=== PATIENT | female | born 1950 | race Caucasian/White ===

== ENCOUNTER 2019-11-19 12:19 | Emergency (ER) | payer OTHER ==
[2019-11-19] MEDS ORDERED: LIDOCAINE 1% W/EPI 1:100,000 MDV 50 ML VIAL ONE (12:55)
[2019-11-19] MEDS ORDERED: TETANUS & DIPHTHERIA TOX,ADULT 0.5 ML VIAL ONE (14:42)
--- NOTE | 2019-11-19 14:43 | EDPHYS ---
Physician Documentation [facility] Name: Gabi Shepard Age: 69 yrs Sex: Female : 1950 Arrival Date: 11/19/2019 Time: 12:20 Bed 17 Private MD: Magnus Mckinley ED Physician Shaun Menard HPI: 11/18 18:48 This 69 yrs old Female presents to ER via Ambulatory with complaints of Fall kdr Injury, Laceration To Arm. 18:48 Details of fall: The patient fell from an upright position, while standing. kdr Historical: - Allergies: 12:39 No Known Allergies; aa5 - PMHx: 12:39 MS; Hypertension; Diabetes - NIDDM; aa5 - PSHx: 12:39 ; Lithotripsy; Cholecystectomy; aa5 - Immunization history:: Last tetanus immunization: unknown. - Social history:: Smoking status: Patient denies any tobacco usage or history of. ROS: 18:59 Constitutional: Negative for fever, chills, and weight loss. kdr 18:59 MS/extremity: Positive for injury or acute deformity, pain, of the palmar aspect of left forearm. Exam: 18:59 Constitutional: This is a well developed, well nourished patient who is awake, alert, kdr and in no acute distress. Head/Face: Normocephalic, atraumatic. 18:59 Skin: injury, laceration(s), the wound is approximately 12 cm(s), with a depth of 2 cm(s), of the palmar aspect of left forearm. Vital Signs: 12:30 BP 167 / 88; Pulse 83; Resp 16 S; Temp 98.5(O); Pulse Ox 97% on R/A; Weight 84.82 kg aa5 (R); Height 5 ft. 3 in. (160.02 cm) (R); Pain 4/10; 14:29 BP 164 / 77; Pulse 67; Resp 16; Pulse Ox 95% ; jl7 12:30 Body Mass Index 33.13 (84.82 kg, 160.02 cm) aa5 Laceration: 18:44 Wound Repair of 12cm ( 4.7in ) subcutaneous laceration to dorsal aspect of left kdr forearm. Distal neuro/vascular/tendon intact. Anesthesia: Wound infiltrated with 15 mls of 0.25% marcaine, Wound infiltrated with 15 mls of 1% lidocaine w/ Epi. Wound prep: Extensive cleansing by me, Wound irrigation with saline by me, Wound explored extensively, Copious irrigation. Skin closed with 6 4-0 Vicryl using simple sutures and sterile technique. Dressed with Neosporin, 4x4's, non-adherent dressing. Patient tolerated well. MDM: 14:42 Patient medically screened. [facility] 18:44 Data reviewed: vital signs, nurses notes. Counseling: I had a detailed discussion with kdr the patient and/or guardian regarding: the historical points, exam findings, and any diagnostic results supporting the discharge/admit diagnosis, the need for outpatient follow up. 11/18 13:34 Order name: Vicryl, Sutures; Complete Time: 13:35 [facility] 11/18 13:34 Order name: Prolene, Sutures; Complete Time: 13:35 [facility] 11/18 13:34 Order name: Dressing - Wound; Complete Time: 14:38 [facility] 11/18 13:34 Order name: Gloves, Sterile; Complete Time: 13:35 [facility] 11/18 13:34 Order name: Setup Suture Tray; Complete Time: 13:36 [facility] Administered Medications: 13:25 Drug: Bupivacaine (0.5 %) 1 application {Note: administered by Dr. Menard.} Volume: 10 jl7 ml; Route: Infiltration; 13:25 Drug: Lidocaine-Epinephrine -1%: (1:100,000) 1 application {Note: administered by Dr. 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 Exp: jl7 07/17/2021. Lot #: [id number]. } Route: IM; Site: right deltoid; 14:51 Follow up: Response: No adverse reaction Amalia 14:50 Drug: KeFLEX 500 mg Route: PO; radha 14:51 Follow up: Response: No adverse reaction jl7 Disposition: 11/19/19 14:42 Discharged to Home. Impression: Laceration without foreign body of left forearm. - Condition is Stable. - Discharge Instructions: Laceration Care, Adult, [id number], Sutured Wound Care, [id number]. - Prescriptions for Keflex 500 mg Oral Capsule - take 1 capsule by ORAL route every 6 hours for 3 days; 12 capsule. Tramadol 50 mg Oral Tablet - take 1 tablet by ORAL route every 8 hours as needed; 12 tablet. - Medication Reconciliation Form, Thank You Letter, Antibiotic Education, Prescription Opioid Use form. - Follow up: Magnus Mckinley MD; When: 2 - 3 days; Reason: If symptoms return, Further diagnostic work-up, Recheck today's complaints, Continuance of care, Re-evaluation by your physician. - Problem is new. - Symptoms have improved. - Notes: Sutures out in 10-12 days Signatures: Shaun Menard MD MD kdr Monika Plata RN RN aa5 Kiah Nunez RN RN jl7 Corrections: (The following items were deleted from the chart) 14:51 14:42 11/19/2019 14:42 Discharged to Home. Impression: Laceration without foreign body jl7 of left forearm. Condition is Stable. Forms are Medication Reconciliation Form, Thank You Letter, Antibiotic Education, Prescription Opioid Use. Follow up: Magnus Mckinley; When: 2 - 3 days; Reason: If symptoms return, Further diagnostic work-up, Recheck today's complaints, Continuance of care, Re-evaluation by your physician. Problem is new. Symptoms have improved. kdr
--- NOTE | 2019-11-19 14:43 | ER ---
Nurse's Notes [facility] Name: Gabi Shepard Age: 69 yrs Sex: Female : 1950 Arrival Date: 11/19/2019 Time: 12:20 Bed 17 Private MD: Magnus Mckinley Diagnosis: Laceration without foreign body of left forearm Presentation: 11/18 12:29 Chief complaint: Patient states: "There were toys and I slipped and fell and hit my arm aa5 on the fireplace". Laceration noted to left FA, no active bleeding noted. Pt denies head injury, denies LOC. 12:29 Coronavirus screen: Proceed with normal triage. Patient denies a cough. Patient denies aa5 shortness of breath or difficulty breathing. Patient denies measured and/or subjective temperature greater than 100.4F prior to today's visit. Patient denies travel on a cruise ship or to a country the [facility] currently lists as an affected area. Patient denies contact with known and/or suspected case of COVID-19. Ebola Screen: Patient negative for fever greater than or equal to 101.5 degrees Fahrenheit, and additional compatible Ebola Virus Disease symptoms. Initial Sepsis Screen: Does the patient meet any 2 criteria? No. Patient's initial sepsis screen is negative. Does the patient have a suspected source of infection? No. Patient's initial sepsis screen is negative. Risk Assessment: Do you want to hurt yourself or someone else? Patient reports no desire to harm self or others. Onset of symptoms was November 2019. 12:29 Acuity: GABBIE 3 aa5 12:29 Method Of Arrival: Ambulatory aa5 Historical: - Allergies: 12:39 No Known Allergies; aa5 - PMHx: 12:39 MS; Hypertension; Diabetes - NIDDM; aa5 - PSHx: 12:39 ; Lithotripsy; Cholecystectomy; aa5 - Immunization history:: Last tetanus immunization: unknown. - Social history:: Smoking status: Patient denies any tobacco usage or history of. Screenin:40 Abuse screen: Denies threats or abuse. Denies injuries from another. Nutritional jl7 screening: No deficits noted. Tuberculosis screening: No symptoms or risk factors identified. Fall Risk Fall in past 12 months (25 points). Total Gómez Fall Scale indicates Low Risk Score (25-44 pts). Fall prevention measures have been instituted. Side Rails Up X 2 Placed close to Nursing Station Frequent Obs/Assesments occuring Family Present and informed to notify staff if they need to leave bedside As available Patient and Family Educated on Fall Prevention Program and strategies. Assessment: 12:32 Reassessment: Gauze and saline applied to laceration with Kerlix. . aa5 12:40 General: Appears in no apparent distress. uncomfortable, Behavior is calm, cooperative, jl7 appropriate for age. Pain: Complains of pain in dorsal aspect of left forearm Pain currently is 4 out of 10 on a pain scale. Neuro: Level of Consciousness is awake, alert, obeys commands, Oriented to person, place, time, situation. Cardiovascular: Patient's skin is warm and dry. Respiratory: Airway is patent Respiratory effort is even, unlabored, Respiratory pattern is regular, symmetrical. Derm: Skin is pink, warm \\T\\ dry. Injury Description: Laceration sustained to palmar aspect of left forearm is full thickness, jagged, 7.6 to 20 cm long, was sustained 30-60 minutes ago. a small amount of bleeding noted at this time. Vital Signs: 12:30 BP 167 / 88; Pulse 83; Resp 16 S; Temp 98.5(O); Pulse Ox 97% on R/A; Weight 84.82 kg aa5 (R); Height 5 ft. 3 in. (160.02 cm) (R); Pain 4/10; 14:29 BP 164 / 77; Pulse 67; Resp 16; Pulse Ox 95% ; jl7 12:30 Body Mass Index 33.13 (84.82 kg, 160.02 cm) aa5 ED Course: 12:20 Patient arrived in ED. ag5 12:22 Magnus Mckinley MD is Private Physician. ag5 12:26 Shaun Menard MD is Attending Physician. kdr 12:29 Arm band placed on Patient placed in an exam room, on a stretcher. aa5 12:33 Kiah Nunez RN is Primary Nurse. jl7 12:38 Triage completed. aa5 12:40 Patient has correct armband on for positive identification. Bed in low position. Call jl7 light in reach. Side rails up X 1. Pulse ox on. NIBP on. 13:34 Assist provider with laceration repair on palmar aspect of left forearm that was jl7 between 7.6 to 12.5 cm using sutures. Set up tray. Performed by Shaun Menard MD Dressed with 4X4s, Kerlix, Neosporin, Patient tolerated well. 14:41 Magnus Mckinley MD is Referral Physician. kdr 14:51 Patient did not have IV access during this emergency room visit. jl7 Administered Medications: 13:25 Drug: Bupivacaine (0.5 %) 1 application {Note: administered by Dr. Menard.} Volume: 10 jl7 ml; Route: Infiltration; 13:25 Drug: Lidocaine-Epinephrine -1%: (1:100,000) 1 application {Note: administered by Dr. 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 Exp: jl7 07/17/2021. Lot #: [id number]. } Route: IM; Site: right deltoid; 14:51 Follow up: Response: No adverse reaction jl7 14:50 Drug: KeFLEX 500 mg Route: PO; jl7 14:51 Follow up: Response: No adverse reaction jl7 Outcome: 14:42 Discharge ordered by MD. kdr 14:51 Discharged to home ambulatory, with family. jl7 14:51 Condition: stable 14:51 Discharge instructions given to patient, family, Instructed on discharge instructions, follow up and referral plans. medication usage, Demonstrated understanding of instructions, follow-up care, medications, Prescriptions given X 2. 14:51 Patient left the ED. jl7 Signatures: Shaun Menard MD MD kdr Monika Plata, RN RN aa5 Kiah Nunez RN RN jl7 Gregory Ram ag5 Corrections: (The following items were deleted from the chart) 12:41 12:29 Chief complaint: Patient states: "There were toys and I slipped and fell and hit aa5 my arm on the fireplace". Laceration noted to left FA, no active bleeding noted. aa5 13:34 12:40 Assist provider with laceration repair on palmar aspect of left forearm that was jl7 between 7.6 to 12.5 cm using sutures. Set up tray. Performed by Shaun Menard MD Dressed with 4X4s, Kerlix, Neosporin, Patient tolerated well. jl7 13:35 13:34 Bupivacaine (0.5 %) 1 application 10 ml Infiltration 10 ml jl7 jl7
[2019-11-19] MEDS ORDERED: CEPHALEXIN 250 MG CAP ONE (14:55)
[2019-11-19 14:56] VITALS: TEMP 98.5
[2019-11-19 14:58] VITALS: BP 164/77; O2SAT 95
== END 2019-11-19 14:51 | disposition home or self-care (01) ==
LOC: ER 12:19
PROC: 0JQH0ZZ Repair Left Lower Arm Subcutaneous Tissue and Fascia, Open Approach (ICD-10-PCS; principal; 2019-11-19)
DX: S51.812A Laceration without foreign body of left forearm, initial encounter (principal); W19.XXXA Unspecified fall, initial encounter; Y93.9 Activity, unspecified; Y92.9 Unspecified place or not applicable; Z23 Encounter for immunization; I10 Essential (primary) hypertension
CPT/HCPCS: 90471; 90714; 99284

== ENCOUNTER 2022-07-28 20:09 | Emergency (ER) | payer OTHER ==
--- OUTSIDE RECORDS SUMMARY | 2022-07-28 20:14 | XMS REPORT | Continuity of Care Document ---
:1950 Author Organization [facility] t Address [address] [place] [address] Care Team Providers Name Role Phone Kael Guerra Attending Clinician Unavailable Cosmo Hernández Attending Clinician Unavailable Kael Guerra Admitting Clinician Unavailable KNOW, DOES_NOT Admitting Clinician Unavailable ZBIGNIEW GARCIA Admitting Clinician Unavailable Payers Payer Name Policy Type Policy Number Effective Date Expiration Date S ource Problems This patient has no known problems. Allergies, Adverse Reactions, Alerts Allergy Allergy Status Severity Reaction(s) Onset Inactive Treating Comm ents Source Name Type Date Date Clinician TB SERUM DA Active [facility] FROM EXTREMITIES 4[facility]11 [place] 00:00: [address] No Known DA Active U [facility] - [place] s 00:00: [address] Medications This patient has no known medications. Procedures Procedure Date / Time Performed Performing Clinician Shantell connolly [id number] 2021-09-12 00:00:00 [facility] [id number] 2021-09-12 00:00:00 [facility] [id number] 2021-09-12 00:00:00 [facility] [id number] 2021-09-12 00:00:00 [facility] [id number] 2021-09-12 00:00:00 [facility] [id number] 2021-09-12 00:00:00 [facility] [id number] 2021-09-12 00:00:00 [facility] [id number] 2021-09-12 00:00:00 [facility] [id number] 2021-09-12 00:00:00 [facility] [id number] 2021-09-12 00:00:00 [facility] [id number] 2021-09-12 00:00:00 [facility] [id number] 2021-09-12 00:00:00 [facility] [id number] 2021-09-12 00:00:00 [facility] [id number] 2021-09-12 00:00:00 [facility] [id number] 2021-09-12 00:00:00 [facility] [id number] 2021-09-12 00:00:00 [facility] [id number] 2021-09-12 00:00:00 [facility] [id number] 2021-09-12 00:00:00 [facility] [id number] 2021-09-12 00:00:00 [facility] [id number] 2021-09-12 00:00:00 [facility] Encounters Start End Encounter Admission Attending Care Care Encounter Source Date/Time Date/Time Type Type Clinicians Facility Department ID 2021-09-12 2021-09-19 Inpatient CRYSTAL Gonsales INTE [id number] [facility] 11:48:00 10:50:[address] 2021-08-29 2021-08-29 Outpatient CRYSTAL Mcghee SURG [id number] [facility] 09:07:00 09:07:00 [facility] 2021-06-26 2021-06-26 Inpatient YOSEF Hernández, [facility] SURG [id number] [facility] 06:38:00 06:38:00 Cosmo 06 [facility] Results Test Description Test Time Test Comments Results Result Comments Source GLUCOSE BEDSIDE TESTING 2021-09-19 07:49:00 Test Item Value Reference Range Interpretation Comme nts GLUCOSE BEDSIDE TESTING (test code = GLUBED) 109 MG/DL 60-99 H PROTHROMBIN [id number] 05:46:00 Test Item Value Reference Range Interpretation Comments PROTHROMBIN TIME 32.2 SECONDS 9.4-12.7 H PATIENT (test code = PTP) INTERNATIONAL NORMAL 2.8 0.86-1.14 H The INR is to be RATIO (test code = used only for INR) monitoring oral anticoagulantth erap y. INDICATION INR VALUE ---- ---- ---- -------1. Prophylaxis, de ep venous thrombos is, including high risk surgery. 2.0 - 3.0 2. Prophylaxis, deep venous thrombosis, hip surgery, treatm ent for deep venous thrombosis or pulmonary prevention of systemic emboli sm in patients wit h valvular heart disease, atrial fibrillation, tissue heart va lve, or acute myocar dial infarction. 2.0 - 3.0 3. Surgical Garment Fitter al prosthesis hear t valves, recurre nt systemic emboli sm. 3.0 - 4.5 Comments to [place] Counselor: pre op surgeryGLUCOSE BEDSIDE [id number] 20:26:00 Test Item Value Reference Range Interpretation Comments GLUCOSE BEDSIDE TESTING (test code 198 MG/DL 60-99 H = GLUBED) GLUCOSE BEDSIDE [id number] 19:52:00 Test Item Value Reference Range Interpretation Comments GLUCOSE BEDSIDE TESTING (test code 134 MG/DL 60-99 H = GLUBED) GLUCOSE BEDSIDE [id number] 19:52:00 Test Item Value Reference Range Interpretation Comments GLUCOSE BEDSIDE TESTING (test code 130 MG/DL 60-99 H = GLUBED) GLUCOSE BEDSIDE [id number] 19:52:00 Test Item Value Reference Range Interpretation Comments GLUCOSE BEDSIDE TESTING (test code 121 MG/DL 60-99 H = GLUBED) GLUCOSE BEDSIDE [id number] 16:29:00 Test Item Value Reference Range Interpretation Comments GLUCOSE BEDSIDE TESTING (test code = 98 MG/DL 60-99 N GLUBED) GLUCOSE BEDSIDE [id number] 12:05:00 Test Item Value Reference Range Interpretation Comments GLUCOSE BEDSIDE TESTING (test code 135 MG/DL 60-99 H = GLUBED) BASIC METABOLIC [id number] 06:35:00 Test Item Value Reference Range Interpretation Comments SODIUM (test code = 139 MMOL/L 137-145 N NA) POTASSIUM (test code = 4.0 MMOL/L 3.5-5.1 N K) CHLORIDE (test code = 104 MMOL/L 98-107 N CL) CARBON DIOXIDE (test 28 MMOL/L 22-30 N code = CO2) GLUCOSE (test code = 116 MG/DL 74-106 H GLU) BLOOD UREA NITROGEN 19 MG/DL 7-17 H (test code = BUN) GLOMERULAR FILTRATION > 60 Report ing units: RATE (test code = GFR) ml/mi n/1.73 m2 (Modified MDRD Formula)Referen ce Range: > or = 6 0 ml/min/1.73 m2 CREATININE (test code 0.60 MG/DL 0.52-1.04 N = CREAT) CALCIUM (test code = 8.8 MG/DL 8.4-10.2 N CA) PROTHROMBIN [id number] 06:29:00 Test Item Value Reference Range Interpretation Comments PROTHROMBIN TIME 23.6 SECONDS 9.4-12.7 H PATIENT (test code = PTP) INTERNATIONAL NORMAL 2.1 0.86-1.14 H The INR is to be RATIO (test code = used only for INR) monitoring oral anticoagulantth erap y. INDICATION INR VALUE ---- ---- ---- -------1. Prophylaxis, de ep venous thrombos is, including high risk surgery. 2.0 - 3.0 2. Prophylaxis, deep venous thrombosis, hip surgery, treatm ent for deep venous thrombosis or pulmonary prevention of systemic emboli sm in patients wit h valvular heart disease, atrial fibrillation, tissue heart va lve, or acute myocar dial infarction. 2.0 - 3.0 3. Surgical Garment Fitter al prosthesis hear t valves, recurre nt systemic emboli sm. 3.0 - 4.5 Comments to [place] Counselor: pre op surgeryCBC W/AUTO [id number] 06:29:00 Test Item Value Reference Range Interpretation Comments WHITE BLOOD CELL (test code = 10.1 K/MM3 3.8-9.8 H WBC) RED BLOOD CELL (test code = 3.43 M/MM3 3.58-4.97 L RBC) HEMOGLOBIN (test code = HGB) 10.0 G/DL 11.2-14.9 L HEMATOCRIT (test code = HCT) 31.0 % 33.2-43.5 L MEAN CELL VOLUME (test code = 90 fL 80.7-99.1 N MCV) MEAN CELL HGB (test code = MCH) 29.2 pg 27.0-34.1 N MEAN CELL HGB CONCETRATION 32.3 % 32.2-35.7 N (test code = MCHC) RED CELL DISTRIBUTION WIDTH 14.0 % 12.1-15.2 N (test code = RDW) PLATELET COUNT (test code = 187 K/MM3 129-368 N PLT) MEAN PLATELET VOLUME (test code 10.4 fl 7.4-10.4 N = MPV) NEUTROPHIL % (test code = NT%) 54.6 % 43-75 N IMMATURE GRANULOCYTE % (test 1.9 % 0.0-2.0 N code = IG%) LYMPHOCYTE % (test code = LY%) 28.4 % 14-44 N MONOCYTE % (test code = MO%) 8.7 % 4-13 N EOSINOPHIL % (test code = EO%) 5.8 % 0-6 N BASOPHIL % (test code = BA%) 0.6 % 0-2 N NUCLEATED RBC % (test code = 0.0 % 0-1.0 N NRBC%) NEUTROPHIL # (test code = NT#) 5.50 K/mm3 2.0-7.6 N IMMATURE GRANULOCYTE # (test 0.19 x10 3/uL 0-0.03 H code = IG#) LYMPHOCYTE # (test code = LY#) 2.87 K/mm3 1.0-3.8 N MONOCYTE # (test code = MO#) 0.88 K/mm3 0.1-0.8 H EOSINOPHIL # (test code = EO#) 0.59 K/mm3 0.0-0.2 H BASOPHIL # (test code = BA#) 0.06 K/mm3 0.0-0.2 N NUCLEATED RBC # (test code = 0.00 K/mm3 0.0-0.1 N NRBC#) GLUCOSE BEDSIDE [id number] 11:47:00 Test Item Value Reference Range Interpretation Comments GLUCOSE BEDSIDE TESTING (test code 115 MG/DL 60-99 H = GLUBED) PROTHROMBIN [id number] 08:12:00 Test Item Value Reference Range Interpretation Comments PROTHROMBIN TIME 18.2 SECONDS 9.4-12.7 H PATIENT (test code = PTP) INTERNATIONAL NORMAL 1.6 0.86-1.14 H The INR is to be RATIO (test code = used only for INR) monitoring oral anticoagulantth erap y. INDICATION INR VALUE ---- ---- ---- -------1. Prophylaxis, de ep venous thrombos is, including high risk surgery. 2.0 - 3.0 2. Prophylaxis, deep venous thrombosis, hip surgery, treatm ent for deep venous thrombosis or pulmonary prevention of systemic emboli sm in patients wit h valvular heart disease, atrial fibrillation, tissue heart va lve, or acute myocar dial infarction. 2.0 - 3.0 3. Surgical Garment Fitter al prosthesis hear t valves, recurre nt systemic emboli sm. 3.0 - 4.5 UNABLE TO DRAW BLOOD, REASON: CBNNOTIFIED PATIENT CARE STAFF: XENAON 09/17/21 AT 0623 BY Dawit Fletcher Comments to [place] Counselor: pre op surgeryCBC W/AUTO DIFF 2021-09-17 08:08:00 Test Item Value Reference Range Interpretation Comments WHITE BLOOD CELL (test code = 11.7 K/MM3 3.8-9.8 H WBC) RED BLOOD CELL (test code = 3.71 M/MM3 3.58-4.97 N RBC) HEMOGLOBIN (test code = HGB) 10.9 G/DL 11.2-14.9 L HEMATOCRIT (test code = HCT) 34.4 % 33.2-43.5 MEAN CELL VOLUME (test code = 93 fL 80.7-99.1 N MCV) MEAN CELL HGB (test code = MCH) 29.4 pg 27.0-34.1 N MEAN CELL HGB CONCETRATION 31.7 % 32.2-35.7 L (test code = MCHC) RED CELL DISTRIBUTION WIDTH 13.9 % 12.1-15.2 N (test code = RDW) PLATELET COUNT (test code = 190 K/MM3 129-368 PLT) MEAN PLATELET VOLUME (test code 10.4 fl 7.4-10.4 N = MPV) NEUTROPHIL % (test code = NT%) 59.2 % 43-75 N IMMATURE GRANULOCYTE % (test 1.5 % 0.0-2.0 N code = IG%) LYMPHOCYTE % (test code = LY%) 25.0 % 14-44 N MONOCYTE % (test code = MO%) 8.7 % 4-13 N EOSINOPHIL % (test code = EO%) 5.1 % 0-6 N BASOPHIL % (test code = BA%) 0.5 % 0-2 N NUCLEATED RBC % (test code = 0.0 % 0-1.0 N NRBC%) NEUTROPHIL # (test code = NT#) 6.90 K/mm3 2.0-7.6 N IMMATURE GRANULOCYTE # (test 0.18 x10 3/uL 0-0.03 H code = IG#) LYMPHOCYTE # (test code = LY#) 2.92 K/mm3 1.0-3.8 N MONOCYTE # (test code = MO#) 1.01 K/mm3 0.1-0.8 H EOSINOPHIL # (test code = EO#) 0.60 K/mm3 0.0-0.2 H BASOPHIL # (test code = BA#) 0.06 K/mm3 0.0-0.2 N NUCLEATED RBC # (test code = 0.00 K/mm3 0.0-0.1 N NRBC#) BASIC METABOLIC [id number] 08:06:00 Test Item Value Reference Range Interpretation Comments SODIUM (test code = 134 MMOL/L 137-145 L NA) POTASSIUM (test code = 4.1 MMOL/L 3.5-5.1 N K) CHLORIDE (test code = 102 MMOL/L 98-107 N CL) CARBON DIOXIDE (test 23 MMOL/L 22-30 N code = CO2) ANION GAP (test code = 13 MMOL/L 14-24 L GAP) GLUCOSE (test code = 135 MG/DL 74-106 H GLU) BLOOD UREA NITROGEN 19 MG/DL 7-17 H (test code = BUN) GLOMERULAR FILTRATION > 60 Report ing units: RATE (test code = GFR) ml/mi n/1.73 m2 (Modified MDRD Formula)Referen ce Range: > or = 6 0 ml/min/1.73 m2 CREATININE (test code 0.60 MG/DL 0.52-1.04 N = CREAT) CALCIUM (test code = 8.8 MG/DL 8.4-10.2 N CA) [id number] 08:06:00 Test Item Value Reference Range Interpretation Comments MAGNESIUM (test code = MAG) 2.3 MG/DL 1.6-2.3 N GLUCOSE BEDSIDE [id number] 16:43:00 Test Item Value Reference Range Interpretation Comments GLUCOSE BEDSIDE TESTING (test code 158 MG/DL 60-99 H = GLUBED) GLUCOSE BEDSIDE [id number] 16:39:00 Test Item Value Reference Range Interpretation Comments GLUCOSE BEDSIDE TESTING (test code 164 MG/DL 60-99 H = GLUBED) - XR CHEST [id number] 07:31:00 [facility] 1950 Sex: F Patient Name: RIGO BRITO Unit No: [id number] EXAMS: CPT CODE: [id number] XR CHEST 1V 91383 C3 TIME OF STUDY: 09/16/2021 5:00 AM REASON FOR EXAM: S/P CABG COMPARISON: September 16, 2019 FINDINGS: AP view ofthe chest was obtained. Support devices: Stable support devices. Lungs: Normal lung volume. No mass,or consolidation. Multiple vascular congestion. Pleura: No pleural effusion or pneumothorax. Heart and Mediastinum: Normal cardiomediastinal silhouette and calcific atherosclerosis. Bones: Post CABG changes are evident. The median sternotomy wires are in the expected configuration. . IMPRESSION: 1. Expected post-CABG changes with no significant change since prior exam. at 0731 Reported and signed by: Manpreet Martinez MD CC: Jyothi HAWKINS; Cosmo Hernández Technologist: Ozzy Emanuel, RT(R) Transcrpt Date/Tm/Trnsp: 09/16/2021 (07) [email or web address] Orig Print D/T: S: 09/16/2021 (0734) [facility] NAME: RIGO BRITO [id number] PHYS: [place] [address] : 1950 AGE: 71 SEX: F LOC: Z.SI05 A PHONE #: [phone] EXAM DATE: 09/16/2021 STATUS: ADM IN FAX #: [phone] RADIOLOGY NO: PAGE 1 Signed ReportGLUCOSE BEDSIDE [id number] 06:53:00 Test Item Value Reference Range Interpretation Comments GLUCOSE BEDSIDE TESTING (test code 130 MG/DL 60-99 H = GLUBED) BASIC METABOLIC [id number] 06:25:00 Test Item Value Reference Range Interpretation Comments SODIUM (test code = 137 MMOL/L 137-145 N NA) POTASSIUM (test code = 3.6 MMOL/L 3.5-5.1 N K) CHLORIDE (test code = 105 MMOL/L 98-107 N CL) CARBON DIOXIDE (test 28 MMOL/L 22-30 N code = CO2) GLUCOSE (test code = 125 MG/DL 74-106 H GLU) BLOOD UREA NITROGEN 14 MG/DL 7-17 N (test code = BUN) GLOMERULAR FILTRATION > 60 Report ing units: RATE (test code = GFR) ml/mi n/1.73 m2 (Modified MDRD Formula)Referen ce Range: > or = 6 0 ml/min/1.73 m2 CREATININE (test code 0.50 MG/DL 0.52-1.04 L = CREAT) CALCIUM (test code = 8.3 MG/DL 8.4-10.2 L CA) PROTHROMBIN [id number] 06:10:00 Test Item Value Reference Range Interpretation Comments PROTHROMBIN TIME 14.7 SECONDS 9.4-12.7 H PATIENT (test code = PTP) INTERNATIONAL NORMAL 1.3 0.86-1.14 H The INR is to be RATIO (test code = used only for INR) monitoring oral anticoagulantth erap y. INDICATION I NR VALUE ---- ---- ---- -------1. Prophylaxis, de ep venous thrombos is, including high risk surgery. 2.0 - 3.0 2. Prophylaxis, deep venous thrombosis, hip surgery, treatm ent for deep venous thrombosis or pulmonary prevention of systemic emboli sm in patients wit h valvular heart disease, atrial fibrillation, tissue heart va lve, or acute myocar dial infarction. 2.0 - 3.0 3. Surgical Garment Fitter al prosthesis hear t valves, recurre nt systemic emboli sm. 3.0 - 4.5 CBC W/AUTO [id number] 05:58:00 Test Item Value Reference Range Interpretation Comments WHITE BLOOD CELL (test code = 8.6 K/MM3 3.8-9.8 N WBC) RED BLOOD CELL (test code = 3.42 M/MM3 3.58-4.97 L RBC) HEMOGLOBIN (test code = HGB) 9.9 G/DL 11.2-14.9 L HEMATOCRIT (test code = HCT) 31.0 % 33.2-43.5 L MEAN CELL VOLUME (test code = 91 fL 80.7-99.1 N MCV) MEAN CELL HGB (test code = MCH) 28.9 pg 27.0-34.1 N MEAN CELL HGB CONCETRATION 31.9 % 32.2-35.7 L (test code = MCHC) RED CELL DISTRIBUTION WIDTH 13.8 % 12.1-15.2 N (test code = RDW) PLATELET COUNT (test code = 129 K/MM3 129-368 N PLT) MEAN PLATELET VOLUME (test code 10.6 fl 7.4-10.4 H = MPV) NEUTROPHIL % (test code = NT%) 62.8 % 43-75 N IMMATURE GRANULOCYTE % (test 1.1 % 0.0-2.0 N code = IG%) LYMPHOCYTE % (test code = LY%) 20.9 % 14-44 N MONOCYTE % (test code = MO%) 9.1 % 4-13 N EOSINOPHIL % (test code = EO%) 5.5 % 0-6 N BASOPHIL % (test code = BA%) 0.6 % 0-2 N NUCLEATED RBC % (test code = 0.0 % 0-1.0 N NRBC%) NEUTROPHIL # (test code = NT#) 5.39 K/mm3 2.0-7.6 N IMMATURE GRANULOCYTE # (test 0.09 x10 3/uL 0-0.03 H code = IG#) LYMPHOCYTE # (test code = LY#) 1.79 K/mm3 1.0-3.8 N MONOCYTE # (test code = MO#) 0.78 K/mm3 0.1-0.8 N EOSINOPHIL # (test code = EO#) 0.47 K/mm3 0.0-0.2 H BASOPHIL # (test code = BA#) 0.05 K/mm3 0.0-0.2 N NUCLEATED RBC # (test code = 0.00 K/mm3 0.0-0.1 N NRBC#) GLUCOSE BEDSIDE [id number] 20:45:00 Test Item Value Reference Range Interpretation Comments GLUCOSE BEDSIDE TESTING (test code 147 MG/DL 60-99 H = GLUBED) GLUCOSE BEDSIDE [id number] 16:47:00 Test Item Value Reference Range Interpretation Comments GLUCOSE BEDSIDE TESTING (test code 140 MG/DL 60-99 H = GLUBED) GLUCOSE BEDSIDE [id number] 16:31:00 Test Item Value Reference Range Interpretation Comments GLUCOSE BEDSIDE TESTING (test code = 99 MG/DL 60-99 N GLUBED) - XR CHEST [id number] 13:13:00 [facility] : 1950 Sex: F Patient Name: RIGO BRITO Unit No: [id number] EXAMS: CPT CODE: [id number] XR CHEST 1V 13983 EXAMINATION: - XR CHEST 1V. LOCATION: B2. HISTORY: CHEST TUBE REMOVAL. COMPARISON: Radiograph of same day by9416 hours. TECHNIQUE: Single AP view of the chest was obtained. FINDINGS: Right subclavian line is unchanged in position. There has been interval removal of one of the mediastinal drains. The 2nd mediastinal drain is unchanged in position. The heart is normal in size. Median sternotomy wires are present. There has been interval decrease of mild bibasilar atelectasis. There is no pneumothorax. No acute osseous abnormality is identified. IMPRESSION: Mild bibasilar atelectasis, decreased since prior exam. at 1313 Reported and signed by: Theodora Mai MD CC: Cosmo Hernández Technologist: ODELL Guillen, RT(R) Transcrpt Date/Tm/Trnsp:09/15/2021 (1313) [email or web address] Orig Print D/T: S: 09/15/2021 (1316) [facility] NAME: RIGO BRITO [id number] PHYS: [place] [address] : 1950 AGE: 71 SEX: F LOC: Z.SI05 A PHONE #: [phone] EXAM DATE: 09/15/2021 STATUS: ADM IN FAX #: [phone] RADIOLOGY NO: PAGE 1 Signed Report PROTHROMBIN [id number] 07:46:00 Test Item Value Reference Range Interpretation Comments PROTHROMBIN TIME 13.0 SECONDS 9.4-12.7 H PATIENT (test code = PTP) INTERNATIONAL NORMAL 1.2 0.86-1.14 H The INR is to be RATIO (test code = used only for INR) monitoring oral anticoagulantth erap y. INDICATION I NR VALUE ---- ---- ---- -------1. Prophylaxis, de ep venous thrombos is, including high risk surgery. 2.0 - 3.0 2. Prophylaxis, deep venous thrombosis, hip surgery, treatm ent for deep venous thrombosis or pulmonary prevention of systemic emboli sm in patients wit h valvular heart disease, atrial fibrillation, tissue heart va lve, or acute myocar dial infarction. 2.0 - 3.0 3. Surgical Garment Fitter al prosthesis hear t valves, recurre nt systemic emboli sm. 3.0 - 4.5 - XR CHEST [id number] 07:36:00 [facility] : 1950 Sex: F Patient Name: RIGO BRITO Unit No: [id number] EXAMS: CPT CODE: [id number] XR CHEST 1V 72430 EXAM: - XRCHEST 1V Location code:C3 HISTORY: S/P CABG COMPARISON: 09/14/2021 FINDINGS: Single AP view of the chest is provided. Right-sided vascular catheter persists. The cardiac silhouette and pulmonary vasculature are mildly engorged. Interstitial prominence persists. There is no effusion or pneumothorax. Mild vascular congestion is seen. IMPRESSION: 1. No significant interval change. at 0736 Reported and signed by: Dmitriy Lyle MD CC: Jyothi HAWKINS; Cosmo Hernández Technologist: Pao Frias, RT (R) Transcrpt Date/Tm/Trnsp: 09/15/2021 (0736) [email or web address] Orig Print D/T: S: 09/15/2021 (4337) [facility] NAME: RIGO BRITO [id number] [address] PHYS: [place] [address] : 1950 AGE: 71 SEX: F LOC: Z.SI05 A PHONE #: [phone] EXAM DATE: 09/15/2021 STATUS: ADM IN FAX #: [phone] RADIOLOGY NO: PAGE 1 Signed ReportBASIC METABOLIC [id number] 06:38:00 Test Item Value Reference Range Interpretation Comments SODIUM (test code = 137 MMOL/L 137-145 N NA) POTASSIUM (test code = 3.9 MMOL/L 3.5-5.1 N K) CHLORIDE (test code = 105 MMOL/L 98-107 N CL) CARBON DIOXIDE (test 30 MMOL/L 22-30 N code = CO2) ANION GAP (test code = 6 MMOL/L 14-24 L GAP) GLUCOSE (test code = 134 MG/DL 74-106 H GLU) BLOOD UREA NITROGEN 15 MG/DL 7-17 N (test code = BUN) GLOMERULAR FILTRATION > 60 Report ing units: RATE (test code = GFR) ml/mi n/1.73 m2 (Modified MDRD Formula)Referen ce Range: > or = 6 0 ml/min/1.73 m2 CREATININE (test code 0.60 MG/DL 0.52-1.04 N = CREAT) CALCIUM (test code = 8.1 MG/DL 8.4-10.2 L CA) CBC W/AUTO [id number] 06:27:00 Test Item Value Reference Range Interpretation Comments WHITE BLOOD CELL (test code = 10.5 K/MM3 3.8-9.8 H WBC) RED BLOOD CELL (test code = 3.24 M/MM3 3.58-4.97 L RBC) HEMOGLOBIN (test code = HGB) 9.6 G/DL 11.2-14.9 L HEMATOCRIT (test code = HCT) 29.5 % 33.2-43.5 L MEAN CELL VOLUME (test code = 91 fL 80.7-99.1 N MCV) MEAN CELL HGB (test code = MCH) 29.6 pg 27.0-34.1 N MEAN CELL HGB CONCETRATION 32.5 % 32.2-35.7 N (test code = MCHC) RED CELL DISTRIBUTION WIDTH 14.0 % 12.1-15.2 N (test code = RDW) PLATELET COUNT (test code = 111 K/MM3 129-368 L PLT) MEAN PLATELET VOLUME (test code 10.1 fl 7.4-10.4 N = MPV) NEUTROPHIL % (test code = NT%) 68.6 % 43-75 N IMMATURE GRANULOCYTE % (test 0.8 % 0.0-2.0 N code = IG%) LYMPHOCYTE % (test code = LY%) 17.6 % 14-44 N MONOCYTE % (test code = MO%) 9.5 % 4-13 N EOSINOPHIL % (test code = EO%) 3.2 % 0-6 N BASOPHIL % (test code = BA%) 0.3 % 0-2 N NUCLEATED RBC % (test code = 0.0 % 0-1.0 N NRBC%) NEUTROPHIL # (test code = NT#) 7.24 K/mm3 2.0-7.6 N IMMATURE GRANULOCYTE # (test 0.08 x10 3/uL 0-0.03 H code = IG#) LYMPHOCYTE # (test code = LY#) 1.85 K/mm3 1.0-3.8 N MONOCYTE # (test code = MO#) 1.00 K/mm3 0.1-0.8 H EOSINOPHIL # (test code = EO#) 0.34 K/mm3 0.0-0.2 H BASOPHIL # (test code = BA#) 0.03 K/mm3 0.0-0.2 N NUCLEATED RBC # (test code = 0.00 K/mm3 0.0-0.1 N NRBC#) GLUCOSE BEDSIDE [id number] 21:11:00 Test Item Value Reference Range Interpretation Comments GLUCOSE BEDSIDE TESTING (test code 138 MG/DL 60-99 H = GLUBED) GLUCOSE BEDSIDE [id number] 20:23:00 Test Item Value Reference Range Interpretation Comments GLUCOSE BEDSIDE TESTING (test code 176 MG/DL 60-99 H = GLUBED) [id number] 15:01:00 Test Item Value Reference Range Interpretation Comments SURGICAL (test code = SR) RUN DATE: 09/14/21 [facility] - LAB PAGE 1 RUN TIME: 1501 Specimen Inquiry RUN USER: INTERFACE PATIENT: RIGO BRTIO LOC: ELISABET U #: [id number] AGE/SX: 71/F [facility] DR: Kael Guerra MD : 46 BED: A DIS: STATUS: ADM IN TLOC: SPEC #: [id number] RECD: 09/13/21 STATUS: CRIS COHN #: [id number] BARB: 09/12/[address] [facility] [address]: Kael Guerra MD ENTERED: 09/13/21 SP TYPE: SURGICAL OTHR DR: Jovani Bartlett MD, Nioti R MD Pepper, Gregory S MDORDERED: [id number], [id number], ANATOMIC SPEC, SPECIMEN TRACK COPIES TO: [place] [address] [place] [address] [place] [address] [place] [address] [place] [address] [facility] [address] [place] [address] Cosmo Hernán[place] [id number] [facility] [address] [place], [place] [address] PROCEDURES: 18061 (09/13/21) 20995 (09/14/21-1499) SPECIMEN TRACK (09/13/21) TISSUES: A. AORTIC VALVE - AORTIC VALVE LEAFLETS FINAL DIAGNOSIS AORTA, VALVE REPLACEMENT: - Valve leaflets with degenerative changes and calcifications. GROSS DESCRIPTION Aortic valve leaflets. It consists of several fragments of aortic valve measuringaggregate of 3 x 3.2 x 0.6 cm. They are sectioned to reveal a heavily calcified cutsurface. Sections are submitted for decalcification as A. Technical component performed at [place] CONTINUED ON NEXT PAGE RUN DATE: 09/14/21 [facility] PAGE 2 RUN TIME: 1501 Specimen Inquiry RUN USER: INTERFACE SPEC #: [id number] PATIENT: RIGO BRITO #[id number] (Continued) GROSS DESCRIPTION (Continued) [address], [place] [address] MICROSCOPIC DESCRIPTION The diagnosis is based upon microscopic examination. Signed SIGNATURE ON FILE ZiaEffie 09/14/21 1501 END OF REPORT GLUCOSE BEDSIDE [id number] 10:54:00 Test Item Value Reference Range Interpretation Comments GLUCOSE BEDSIDE TESTING (test code 149 MG/DL 60-99 H = GLUBED) GLUCOSE BEDSIDE [id number] 10:54:00 Test Item Value Reference Range Interpretation Comments GLUCOSE BEDSIDE TESTING (test code 150 MG/DL 60-99 H = GLUBED) - [facility] [id number] 07:31:00 [facility] : 1950 Sex: F Patient Name: RIGO BRITO Unit No: [id number] EXAMS: CPT CODE: [id number] XR CHEST 1V 24650 EXAMINATION: - XR CHEST 1V HISTORY: Postop COMPARISON: Chest x-ray performed the previous day LOCATION CODE: C3 FINDINGS: Single frontal view of the chest is submitted for evaluation. [place] catheter has beenremoved since the prior study. Right-sided central venous catheter remains present and is unchanged as are linear opacities in both lower lungs. 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 No new abnormalities are identified. IMPRESSION: Interval removal of [place]Melanie catheter, without other significant change at 0731 Repo rted and signed by: Quyen Nguyen MD CC: Jyothi HAWKINS; Cosmo Hernández Technologist: Kevin Ordaz (RT) Transcrpt Date/Tm/Trnsp: 09/14/2021 (0731) [email or web address] Orig Print D/T: S: 09/14/2021 (0734) [facility] NAME: RIGO BRITO [id number] PHYS: [place] [address] : 1950 AGE: 71 SEX: F LOC: Z.SI05 A PHONE #: [phone] EXAM DATE: 09/14/2021 STATUS: ADM IN FAX #: [phone] RADIOLOGY NO: PAGE 1 Signed ReportBASIC METABOLIC [id number] 07:02:00 Test Item Value Reference Range Interpretation Comments SODIUM (test code = 136 MMOL/L 137-145 L NA) POTASSIUM (test code = 3.8 MMOL/L 3.5-5.1 N K) CHLORIDE (test code = 104 MMOL/L 98-107 N CL) CARBON DIOXIDE (test 28 MMOL/L 22-30 N code = CO2) ANION GAP (test code = 8 MMOL/L 14-24 L GAP) GLUCOSE (test code = 139 MG/DL 74-106 H GLU) BLOOD UREA NITROGEN 24 MG/DL 7-17 H (test code = BUN) GLOMERULAR FILTRATION > 60 Report ing units: RATE (test code = GFR) ml/mi n/1.73 m2 (Modified MDRD Formula)Referen ce Range: > or = 6 0 ml/min/1.73 m2 CREATININE (test code 0.70 MG/DL 0.52-1.04 N = CREAT) CALCIUM (test code = 8.2 MG/DL 8.4-10.2 L CA) [id number] 07:02:00 Test Item Value Reference Range Interpretation Comments MAGNESIUM (test code = MAG) 2.5 MG/DL 1.6-2.3 H PROTHROMBIN [id number] 06:39:00 Test Item Value Reference Range Interpretation Comments PROTHROMBIN TIME 13.6 SECONDS 9.4-12.7 H PATIENT (test code = PTP) INTERNATIONAL NORMAL 1.2 0.86-1.14 H The INR is to be RATIO (test code = used only for INR) monitoring oral anticoagulantth erap y. INDICATION INR VALUE ---- ---- ---- -------1. Prophylaxis, de ep venous thrombos is, including high risk surgery. 2.0 - 3.0 2. Prophylaxis, deep venous thrombosis, hip surgery, treatm ent for deep venous thrombosis or pulmonary prevention of systemic emboli sm in patients wit h valvular heart disease, atrial fibrillation, tissue heart va lve, or acute myocar dial infarction. 2.0 - 3.0 3. Surgical Garment Fitter al prosthesis hear t valves, recurre nt systemic emboli sm. 3.0 - 4.5 CBC W/AUTO [id number] 06:30:00 Test Item Value Reference Range Interpretation Comments WHITE BLOOD CELL (test code = 13.8 K/MM3 3.8-9.8 H WBC) RED BLOOD CELL (test code = 3.28 M/MM3 3.58-4.97 L RBC) HEMOGLOBIN (test code = HGB) 9.7 G/DL 11.2-14.9 L HEMATOCRIT (test code = HCT) 30.8 % 33.2-43.5 L MEAN CELL VOLUME (test code = 94 fL 80.7-99.1 N MCV) MEAN CELL HGB (test code = MCH) 29.6 pg 27.0-34.1 N MEAN CELL HGB CONCETRATION 31.5 % 32.2-35.7 L (test code = MCHC) RED CELL DISTRIBUTION WIDTH 14.5 % 12.1-15.2 N (test code = RDW) PLATELET COUNT (test code = 119 K/MM3 129-368 L PLT) MEAN PLATELET VOLUME (test code 10.3 fl 7.4-10.4 N = MPV) NEUTROPHIL % (test code = NT%) 70.5 % 43-75 N IMMATURE GRANULOCYTE % (test 0.5 % 0.0-2.0 N code = IG%) LYMPHOCYTE % (test code = LY%) 17.6 % 14-44 N MONOCYTE % (test code = MO%) 8.9 % 4-13 N EOSINOPHIL % (test code = EO%) 2.2 % 0-6 N BASOPHIL % (test code = BA%) 0.3 % 0-2 N NUCLEATED RBC % (test code = 0.0 % 0-1.0 N NRBC%) NEUTROPHIL # (test code = NT#) 9.73 K/mm3 2.0-7.6 H IMMATURE GRANULOCYTE # (test 0.07 x10 3/uL 0-0.03 H code = IG#) LYMPHOCYTE # (test code = LY#) 2.42 K/mm3 1.0-3.8 N MONOCYTE # (test code = MO#) 1.22 K/mm3 0.1-0.8 H EOSINOPHIL # (test code = EO#) 0.30 K/mm3 0.0-0.2 H BASOPHIL # (test code = BA#) 0.04 K/mm3 0.0-0.2 N NUCLEATED RBC # (test code = 0.00 K/mm3 0.0-0.1 N NRBC#) GLUCOSE BEDSIDE [id number] 18:17:00 Test Item Value Reference Range Interpretation Comments GLUCOSE BEDSIDE TESTING (test code 143 MG/DL 60-99 H = GLUBED) GLUCOSE BEDSIDE [id number] 18:17:00 Test Item Value Reference Range Interpretation Comments GLUCOSE BEDSIDE TESTING (test code 166 MG/DL 60-99 H = GLUBED) GLUCOSE BEDSIDE [id number] 18:17:00 Test Item Value Reference Range Interpretation Comments GLUCOSE BEDSIDE TESTING (test code 131 MG/DL 60-99 H = GLUBED) GLUCOSE BEDSIDE [id number] 10:10:00 Test Item Value Reference Range Interpretation Comments GLUCOSE BEDSIDE TESTING (test code 135 MG/DL 60-99 H = GLUBED) GLUCOSE BEDSIDE [id number] 06:55:00 Test Item Value Reference Range Interpretation Comments GLUCOSE BEDSIDE TESTING (test code 164 MG/DL 60-99 H = GLUBED) GLUCOSE BEDSIDE [id number] 06:54:00 Test Item Value Reference Range Interpretation Comments GLUCOSE BEDSIDE TESTING (test code 168 MG/DL 60-99 H = GLUBED) - XR CHEST [id number] 06:39:00 [facility] 1950 Sex: F Patient Name: RIGO BRITO Unit No: [id number] EXAMS: CPT CODE: [id number] XR CHEST 1V [id number] EXAM: - XRCHEST 1V Location code:C3 HISTORY: S/P CABG COMPARISON: 09/12/2021 FINDINGS: Single AP view of the chest is provided. Endotracheal tube has been unchanged. Other support lines and tubes are similar. Interstitial prominence persists. There is no effusion or pneumothorax. Mild vascular congestion is seen. IMPRESSION: 1. Endotracheal tube has been removed otherwise no significant interval change. at 0639 Reported and signed by: Dmitriy Lyle MD CC: Jyothi HAWKINS; Cosmo Hernández Technologist: Kevin Ordaz (RT) Tra nscrpt Date/Tm/Trnsp: 09/13/2021 (0639) [email or web address] Orig Print D/T: S: 09/13/2021 (0643) [facility] NAME: RIGO BRITO [id number] PHYS: [place] [address] : 1950 AGE: 71 SEX: F LOC: Z.SI05 A PHONE #: [phone] EXAM DATE: 09/13/2021 STATUS: ADM IN FAX #: [phone] RADIOLOGY NO: PAGE 1 Signed ReportBASIC METABOLIC [id number] 04:01:00 Test Item Value Reference Range Interpretation Comments SODIUM (test code = 142 MMOL/L 137-145 N NA) POTASSIUM (test code = 3.8 MMOL/L 3.5-5.1 N K) CHLORIDE (test code = 110 MMOL/L 98-107 H CL) CARBON DIOXIDE (test 28 MMOL/L 22-30 N code = CO2) ANION GAP (test code = 8 MMOL/L 14-24 L GAP) GLUCOSE (test code = 157 MG/DL 74-106 H GLU) BLOOD UREA NITROGEN 19 MG/DL 7-17 H (test code = BUN) GLOMERULAR FILTRATION > 60 Report ing units: RATE (test code = GFR) ml/mi n/1.73 m2 (Modified MDRD Formula)Referen ce Range: > or = 6 0 ml/min/1.73 m2 CREATININE (test code 0.60 MG/DL 0.52-1.04 N = CREAT) CALCIUM (test code = 7.9 MG/DL 8.4-10.2 L CA) [id number] 04:01:00 Test Item Value Reference Range Interpretation Comments MAGNESIUM (test code = MAG) 2.4 MG/DL 1.6-2.3 H CBC W/AUTO [id number] 03:48:00 Test Item Value Reference Range Interpretation Comments WHITE BLOOD CELL (test code = 16.5 K/MM3 3.8-9.8 H WBC) RED BLOOD CELL (test code = 3.80 M/MM3 3.58-4.97 N RBC) HEMOGLOBIN (test code = HGB) 11.2 G/DL 11.2-14.9 N HEMATOCRIT (test code = HCT) 34.3 % 33.2-43.5 N MEAN CELL VOLUME (test code = 90 fL 80.7-99.1 N MCV) MEAN CELL HGB (test code = MCH) 29.5 pg 27.0-34.1 N MEAN CELL HGB CONCETRATION 32.7 % 32.2-35.7 N (test code = MCHC) RED CELL DISTRIBUTION WIDTH 14.2 % 12.1-15.2 N (test code = RDW) PLATELET COUNT (test code = 172 K/MM3 129-368 N PLT) MEAN PLATELET VOLUME (test code 10.1 fl 7.4-10.4 N = MPV) NEUTROPHIL % (test code = NT%) 79.7 % 43-75 H IMMATURE GRANULOCYTE % (test 0.5 % 0.0-2.0 N code = IG%) LYMPHOCYTE % (test code = LY%) 9.5 % 14-44 L MONOCYTE % (test code = MO%) 9.9 % 4-13 N EOSINOPHIL % (test code = EO%) 0.1 % 0-6 N BASOPHIL % (test code = BA%) 0.3 % 0-2 N NUCLEATED RBC % (test code = 0.0 % 0-1.0 N NRBC%) NEUTROPHIL # (test code = NT#) 13.13 K/mm3 2.0-7.6 H IMMATURE GRANULOCYTE # (test 0.08 x10 3/uL 0-0.03 H code = IG#) LYMPHOCYTE # (test code = LY#) 1.56 K/mm3 1.0-3.8 N MONOCYTE # (test code = MO#) 1.63 K/mm3 0.1-0.8 H EOSINOPHIL # (test code = EO#) 0.01 K/mm3 0.0-0.2 N BASOPHIL # (test code = BA#) 0.05 K/mm3 0.0-0.2 N NUCLEATED RBC # (test code = 0.00 K/mm3 0.0-0.1 N NRBC#) GLUCOSE BEDSIDE [id number] 03:40:00 Test Item Value Reference Range Interpretation Comments GLUCOSE BEDSIDE TESTING (test code 154 MG/DL 60-99 H = GLUBED) GLUCOSE BEDSIDE [id number] 03:05:00 Test Item Value Reference Range Interpretation Comments GLUCOSE BEDSIDE TESTING (test code 160 MG/DL 60-99 H = GLUBED) GLUCOSE BEDSIDE [id number] 01:29:00 Test Item Value Reference Range Interpretation Comments GLUCOSE BEDSIDE TESTING (test code 164 MG/DL 60-99 H = GLUBED) GLUCOSE BEDSIDE [id number] 01:23:00 Test Item Value Reference Range Interpretation Comments GLUCOSE BEDSIDE TESTING (test code 145 MG/DL 60-99 H = GLUBED) GLUCOSE BEDSIDE [id number] 01:23:00 Test Item Value Reference Range Interpretation Comments GLUCOSE BEDSIDE TESTING (test code 176 MG/DL 60-99 H = GLUBED) GLUCOSE BEDSIDE [id number] 01:23:00 Test Item Value Reference Range Interpretation Comments GLUCOSE BEDSIDE TESTING (test code 189 MG/DL 60-99 H = GLUBED) GLUCOSE BEDSIDE [id number] 01:23:00 Test Item Value Reference Range Interpretation Comments GLUCOSE BEDSIDE TESTING (test code 204 MG/DL 60-99 H = GLUBED) GLUCOSE BEDSIDE [id number] 01:23:00 Test Item Value Reference Range Interpretation Comments GLUCOSE BEDSIDE TESTING (test code 161 MG/DL 60-99 H = GLUBED) GLUCOSE BEDSIDE [id number] 01:23:00 Test Item Value Reference Range Interpretation Comments GLUCOSE BEDSIDE TESTING (test code 194 MG/DL 60-99 H = GLUBED) GLUCOSE BEDSIDE [id number] 01:23:00 Test Item Value Reference Range Interpretation Comments GLUCOSE BEDSIDE TESTING (test code 157 MG/DL 60-99 H = GLUBED) GLUCOSE BEDSIDE [id number] 01:23:00 Test Item Value Reference Range Interpretation Comments GLUCOSE BEDSIDE TESTING (test code 193 MG/DL 60-99 H = GLUBED) BASIC METABOLIC [id number] 18:33:00 Test Item Value Reference Range Interpretation Comments SODIUM (test code = 142 MMOL/L 137-145 N NA) POTASSIUM (test code = 4.1 MMOL/L 3.5-5.1 N K) CHLORIDE (test code = 110 MMOL/L 98-107 H CL) CARBON DIOXIDE (test 25 MMOL/L 22-30 N code = CO2) ANION GAP (test code = 11 MMOL/L 14-24 L GAP) GLUCOSE (test code = 162 MG/DL 74-106 H GLU) BLOOD UREA NITROGEN 19 MG/DL 7-17 H (test code = BUN) GLOMERULAR FILTRATION > 60 Report ing units: RATE (test code = GFR) ml/mi n/1.73 m2 (Modified MDRD Formula)Referen ce Range: > or = 6 0 ml/min/1.73 m2 CREATININE (test code 0.60 MG/DL 0.52-1.04 N = CREAT) CALCIUM (test code = 8.6 MG/DL 8.4-10.2 N CA) UNABLE TO DRAW BLOOD, REASON: CBNBNOTIFIED PATIENT CARE STAFF: [facility] 09/12/21 AT 1413 BY Dior Awad [id number] 18:33:00 Test Item Value Reference Range Interpretation Comments MAGNESIUM (test code = MAG) 3.0 MG/DL 1.6-2.3 H UNABLE TO DRAW BLOOD, REASON: CBNBNOTIFIED PATIENT CARE STAFF: [facility] 09/12/21 AT 1413 BY Dior Awad AnPROTHROMBIN [id number] 18:22:00 Test Item Value Reference Range Interpretation Comments PROTHROMBIN TIME 12.1 SECONDS 9.4-12.7 PATIENT (test code = PTP) INTERNATIONAL NORMAL 1.1 0.86-1.14 N The INR is to be RATIO (test code = used only for INR) monitoring oral anticoagulantth erap y. INDICATION I NR VALUE ---- ---- ---- -------1. Prophylaxis, de ep venous thrombos is, including high risk surgery. 2.0 - 3.0 2. Prophylaxis, deep venous thrombosis, hip surgery, treatm ent for deep venous thrombosis or pulmonary prevention of systemic emboli sm in patients wit h valvular heart disease, atrial fibrillation, tissue heart va lve, or acute myocar dial infarction. 2.0 - 3.0 3. Surgical Garment Fitter al prosthesis hear t valves, recurre nt systemic emboli sm. 3.0 - 4.5 PTT [id number] 18:22:00 Test Item Value Reference Range Interpretation Comments PTT ACTIVATED (test code = APTT) 30.3 SECONDS 26.2-35.4 CBC W/AUTO [id number] 18:18:00 Test Item Value Reference Range Interpretation Comments WHITE BLOOD CELL (test code = 18.7 K/MM3 3.8-9.8 H WBC) RED BLOOD CELL (test code = 4.27 M/MM3 3.58-4.97 RBC) HEMOGLOBIN (test code = HGB) 12.5 G/DL 11.2-14.9 HEMATOCRIT (test code = HCT) 37.9 % 33.2-43.5 MEAN CELL VOLUME (test code = 89 fL 80.7-99.1 N MCV) MEAN CELL HGB (test code = MCH) 29.3 pg 27.0-34.1 N MEAN CELL HGB CONCETRATION 33.0 % 32.2-35.7 N (test code = MCHC) RED CELL DISTRIBUTION WIDTH 13.9 % 12.1-15.2 N (test code = RDW) PLATELET COUNT (test code = 195 K/MM3 129-368 N PLT) MEAN PLATELET VOLUME (test code 10.0 fl 7.4-10.4 N = MPV) NEUTROPHIL % (test code = NT%) 88.4 % 43-75 H IMMATURE GRANULOCYTE % (test 1.0 % 0.0-2.0 N code = IG%) LYMPHOCYTE % (test code = LY%) 4.9 % 14-44 L MONOCYTE % (test code = MO%) 5.3 % 4-13 N EOSINOPHIL % (test code = EO%) 0.1 % 0-6 N BASOPHIL % (test code = BA%) 0.3 % 0-2 N NUCLEATED RBC % (test code = 0.0 % 0-1.0 N NRBC%) NEUTROPHIL # (test code = NT#) 16.58 K/mm3 2.0-7.6 H IMMATURE GRANULOCYTE # (test 0.18 x10 3/uL 0-0.03 H code = IG#) LYMPHOCYTE # (test code = LY#) 0.91 K/mm3 1.0-3.8 L MONOCYTE # (test code = MO#) 0.99 K/mm3 0.1-0.8 H EOSINOPHIL # (test code = EO#) 0.02 K/mm3 0.0-0.2 N BASOPHIL # (test code = BA#) 0.06 K/mm3 0.0-0.2 N NUCLEATED RBC # (test code = 0.00 K/mm3 0.0-0.1 N NRBC#) UNABLE TO DRAW BLOOD, REASON: CBNOTIFIED PATIENT CARE STAFF: [facility] 09/12/21 AT 1413 BY Dior Awad An- XR CHEST [id number] 14:23:00 [facility] 1950 Sex: F Patient Name: RIGO BRITO Unit No: [id number] EXAMS: CPT CODE: [id number] XR CHEST 1V 61071 EXAMINATION: - XR CHEST 1V HISTORY: Aortic valve replacement COMPARISON: Chest x-ray performed the previous day LOCATION CODE: C3 FINDINGS: Single frontal view of the chest is submitted for evaluation. Patient has undergone interval median sternotomy and aortic valve replacement. [place]-Melanie catheter from a right internal jugular vein approach is noted with the tip projecting over the area of the pulmonary artery outflow tract. A second right-sided internal jugular central venous catheter is also present with its tip projecting over the area of the distal superior vena cava. Endotracheal tube is present with tip approximately 1.8 cm above the mirza. Nasogastric tube is present. Tip is in the proximal to midstomach with the side-port in the proximal stomach at or just distal to the gastroesophageal junction A presumed mediastinal drain and a right-sided chest tube are noted. Mild linear changes are seen in both lungs presumably atelectatic in nature. IMPRESSION: Postoperative changes as above at 1423 Reported and signed by: Quyen Nguyen MD CC:Jyothi HAWKINS; Cosmo Hernández Technologist: Pao Frias, RT (R) Transcrpt Date/Tm/Trnsp: 09/12/2021 (5313) [id number] Orig Print D/T: S: 09/12/2021 (3430) [facility] NAME: RIGO BRITO [id number] PHYS: [place] [address] : 1950 AGE: 71 SEX: F LOC: Z.SI05 A PHONE #: [phone] EXAM DATE: 09/12/2021 STATUS: ADM IN FAX #: [phone] RADIOLOGY NO: PAGE 1 Signed ReportARTERIAL BLOOD [id number] 14:18:00 Test Item Value Reference Range Interpretation Comments ARTERIAL BLOOD GAS PH 7.34 mmHg 7.35-7.45 L (test code = PHA) ARTERIAL BLOOD GAS 39.5 mmHg 35.0-45.0 N PCO2 (test code = PCO2A) ARTERIAL BLOOD GAS 115.0 mmol/L 80.0-100.0 H PO2 (test code = PO2A) BICARBONATE TOTAL 20.8 mmol/L 20.0-26.0 N HCO3 (test code = HCO3) BASE EXCESS (test -4.6 mmol/L -3.0-3.0 L code = PEPPER) ABG O2 SATURATION 98.0 % 95.0-100.0 N (test code = SATA) ABG DELIVERY (test VENT code = MURPHY) ABG VENT MODE (test A/C code = MODEA) ABG VENT RESP RATE 12.0 /MIN (test code = RRA) ABG TIDAL VOLUME 500.0 ml (test code = TVA) ABG PEEP (test code = 5.0 cmH2O PEEPA) ABG TEMPERATURE (test 37.0 C See_Comment [Auto mated message] code = TEMPA) The system zappit generated this result transmit coy reference range : 37. The reference r dionte was not used to interpret this result as normal/abnormal . ABG SITE (test code = AL SITEA) ALLENS TEST (test NA CHECK code = ALLENS) FIO2 (test code = 100 % COHBGFFIO2) BASIC METABOLIC [id number] 14:09:00 Test Item Value Reference Range Interpretation Comments SODIUM (test code = 139 MMOL/L 137-145 N NA) POTASSIUM (test code = 3.4 MMOL/L 3.5-5.1 L K) CHLORIDE (test code = 111 MMOL/L 98-107 H CL) CARBON DIOXIDE (test 22 MMOL/L 22-30 N code = CO2) ANION GAP (test code = 9 MMOL/L 14-24 L GAP) GLUCOSE (test code = 203 MG/DL 74-106 H GLU) BLOOD UREA NITROGEN 21 MG/DL 7-17 H (test code = BUN) GLOMERULAR FILTRATION > 60 Report ing units: RATE (test code = GFR) ml/mi n/1.73 m2 (Modified MDRD Formula)Referen ce Range: > or = 6 0 ml/min/1.73 m2 CREATININE (test code 0.60 MG/DL 0.52-1.04 N = CREAT) CALCIUM (test code = 8.4 MG/DL 8.4-10.2 N CA) PLEASE CALL RESULTS TO PHONE #: [phone] [facility] W/AUTO [id number] 14:01:00 Test Item Value Reference Range Interpretation Comments WHITE BLOOD CELL (test code = 24.8 K/MM3 3.8-9.8 H WBC) RED BLOOD CELL (test code = 3.53 M/MM3 3.58-4.97 L RBC) HEMOGLOBIN (test code = HGB) 10.4 G/DL 11.2-14.9 L HEMATOCRIT (test code = HCT) 31.4 % 33.2-43.5 L MEAN CELL VOLUME (test code = 89 fL 80.7-99.1 N MCV) MEAN CELL HGB (test code = MCH) 29.5 pg 27.0-34.1 N MEAN CELL HGB CONCETRATION 33.1 % 32.2-35.7 N (test code = MCHC) RED CELL DISTRIBUTION WIDTH 13.5 % 12.1-15.2 N (test code = RDW) PLATELET COUNT (test code = 191 K/MM3 129-368 PLT) MEAN PLATELET VOLUME (test code 9.8 fl 7.4-10.4 N = MPV) NEUTROPHIL % (test code = NT%) 63.1 % 43-75 N IMMATURE GRANULOCYTE % (test 0.8 % 0.0-2.0 N code = IG%) LYMPHOCYTE % (test code = LY%) 29.5 % 14-44 N MONOCYTE % (test code = MO%) 5.2 % 4-13 N EOSINOPHIL % (test code = EO%) 1.1 % 0-6 N BASOPHIL % (test code = BA%) 0.3 % 0-2 N NUCLEATED RBC % (test code = 0.0 % 0-1.0 N NRBC%) NEUTROPHIL # (test code = NT#) 15.66 K/mm3 2.0-7.6 H IMMATURE GRANULOCYTE # (test 0.20 x10 3/uL 0-0.03 H code = IG#) LYMPHOCYTE # (test code = LY#) 7.33 K/mm3 1.0-3.8 H MONOCYTE # (test code = MO#) 1.28 K/mm3 0.1-0.8 H EOSINOPHIL # (test code = EO#) 0.28 K/mm3 0.0-0.2 H BASOPHIL # (test code = BA#) 0.08 K/mm3 0.0-0.2 N NUCLEATED RBC # (test code = 0.00 K/mm3 0.0-0.1 N NRBC#) PLEASE CALL RESULTS TO PHONE #: [phone] STATPROTHROMBIN [id number] 14:00:00 Test Item Value Reference Range Interpretation Comments PROTHROMBIN TIME 13.9 SECONDS 9.4-12.7 H PATIENT (test code = PTP) INTERNATIONAL NORMAL 1.3 0.86-1.14 H The INR is to be RATIO (test code = used only for INR) monitoring oral anticoagulantth erap y. INDICATION INR VALUE ---- ---- ---- -------1. Prophylaxis, de ep venous thrombos is, including high risk surgery. 2.0 - 3.0 2. Prophylaxis, deep venous thrombosis, hip surgery, treatm ent for deep venous thrombosis or pulmonary prevention of systemic emboli sm in patients wit h valvular heart disease, atrial fibrillation, tissue heart va lve, or acute myocar dial infarction. 2.0 - 3.0 3. Surgical Garment Fitter al prosthesis hear t valves, recurre nt systemic emboli sm. 3.0 - 4.5 PLEASE CALL RESULTS TO PHONE #: [phone] STATPTT [id number] 14:00:00 Test Item Value Reference Range Interpretation Comments PTT ACTIVATED (test code = APTT) 28.5 SECONDS 26.2-35.4 PLEASE CALL RESULTS TO PHONE #: [phone] STATPOC ARTERIAL BLOOD [id number] 13:41:00 Test Item Value Reference Range Interpretation Comments POC ARTERIAL BLOOD GAS PH 7.422 7.35-7.45 N (test code = POCPHA) POC ARTERIAL BLOOD GAS PCO2 34.2 mmHg 35.0-45.0 L (test code = [id number]) POC ARTERIAL BLOOD GAS PO2 201.2 75.0-100.0 HH (test code = SUGQU8Y) POC HCO3 ARTERIAL (test 22.3 MMOL/L 20.0-26.0 N code = [id number]) POC BASE EXCESS (test code -1.7 MMOL/L -3.0-3.0 N = POCBEA) POC O2 SATURATION (test 99.7 % 92.0-98.5 H code = POCO2S) SODIUM (test code = NA/ABG) 143 MMOL/L 135-141 H POTASSIUM (test code = 3.6 MMOL/L 3.7-4.7 L K/ABG) CHLORIDE (test code = 107 MEQ/L CL/ABG) POC IONIZED CALCIUM (test 1.21 MMOL/L 1.13-1.32 N code = POCCA) POC GLUCOSE (test code = 209 MG/DL 60-99 H POCGLU) POC SAMPLE SOURCE (test Arterial Descript Specimen code = POCSAMPLE) LACTIC ACID POC (test code 3.34 mmol/L 0.7-2.0 HH = LACTP) POC ARTERIAL BLOOD [id number] 12:27:00 Test Item Value Reference Range Interpretation Comments POC ARTERIAL BLOOD GAS PH 7.412 7.35-7.45 N (test code = POCPHA) POC ARTERIAL BLOOD GAS PCO2 42.5 mmHg 35.0-45.0 N (test code = [id number]) POC ARTERIAL BLOOD GAS PO2 197.8 75.0-100.0 H (test code = GFIPD0C) POC HCO3 ARTERIAL (test 27.1 MMOL/L 20.0-26.0 H code = [id number]) POC BASE EXCESS (test code 2.2 MMOL/L -3.0-3.0 N = POCBEA) POC O2 SATURATION (test 99.7 % 92.0-98.5 H code = POCO2S) SODIUM (test code = NA/ABG) 141 MMOL/L 135-141 N POTASSIUM (test code = 4.7 MMOL/L 3.7-4.7 N K/ABG) CHLORIDE (test code = 105 MEQ/L CL/ABG) POC IONIZED CALCIUM (test 1.00 MMOL/L 1.13-1.32 L code = POCCA) POC GLUCOSE (test code = 139 MG/DL 60-99 H POCGLU) POC SAMPLE SOURCE (test Arterial Descript Specimen code = POCSAMPLE) LACTIC ACID POC (test code 1.46 mmol/L 0.7-2.0 N = LACTP) POC ARTERIAL BLOOD [id number] 11:55:00 Test Item Value Reference Range Interpretation Comments POC ARTERIAL BLOOD GAS PH 7.389 7.35-7.45 N (test code = POCPHA) POC ARTERIAL BLOOD GAS PCO2 42.1 mmHg 35.0-45.0 N (test code = [id number]) POC ARTERIAL BLOOD GAS PO2 282.7 75.0-100.0 HH (test code = ANSMT2E) POC HCO3 ARTERIAL (test 25.4 MMOL/L 20.0-26.0 N code = [id number]) POC BASE EXCESS (test code 0.3 MMOL/L -3.0-3.0 N = POCBEA) POC O2 SATURATION (test 99.9 % 92.0-98.5 H code = POCO2S) SODIUM (test code = NA/ABG) 143 MMOL/L 135-141 H POTASSIUM (test code = 4.3 MMOL/L 3.7-4.7 N K/ABG) CHLORIDE (test code = 107 MEQ/L CL/ABG) POC IONIZED CALCIUM (test 1.09 MMOL/L 1.13-1.32 L code = POCCA) POC GLUCOSE (test code = 146 MG/DL 60-99 H POCGLU) POC SAMPLE SOURCE (test Arterial Descript Specimen code = POCSAMPLE) LACTIC ACID POC (test code 1.69 mmol/L 0.7-2.0 N = LACTP) POC ARTERIAL BLOOD [id number] 11:22:00 Test Item Value Reference Range Interpretation Comments POC ARTERIAL BLOOD GAS PH 7.417 7.35-7.45 N (test code = POCPHA) POC ARTERIAL BLOOD GAS PCO2 43.3 mmHg 35.0-45.0 N (test code = [id number]) POC ARTERIAL BLOOD GAS PO2 401.6 75.0-100.0 HH (test code = [id number]) POC HCO3 ARTERIAL (test 27.9 MMOL/L 20.0-26.0 H code = [id number]) POC BASE EXCESS (test code 3.0 MMOL/L -3.0-3.0 N = POCBEA) POC O2 SATURATION (test 100.0 % 92.0-98.5 H code = POCO2S) SODIUM (test code = NA/ABG) 141 MMOL/L 135-141 N POTASSIUM (test code = 3.5 MMOL/L 3.7-4.7 L K/ABG) CHLORIDE (test code = 100 MEQ/L CL/ABG) POC IONIZED CALCIUM (test 0.87 MMOL/L 1.13-1.32 L code = POCCA) POC GLUCOSE (test code = 126 MG/DL 60-99 H POCGLU) POC SAMPLE SOURCE (test Arterial Descript Specimen code = POCSAMPLE) LACTIC ACID POC (test code 2.63 mmol/L 0.7-2.0 HH = LACTP) BASIC METABOLIC [id number] 11:03:00 Test Item Value Reference Range Interpretation Comments SODIUM (test code = 141 MMOL/L 137-145 N NA) POTASSIUM (test code = 3.5 MMOL/L 3.5-5.1 N K) CHLORIDE (test code = 106 MMOL/L 98-107 N CL) CARBON DIOXIDE (test 26 MMOL/L 22-30 N code = CO2) ANION GAP (test code = 13 MMOL/L 14-24 L GAP) GLUCOSE (test code = 132 MG/DL 74-106 H GLU) BLOOD UREA NITROGEN 23 MG/DL 7-17 H (test code = BUN) GLOMERULAR FILTRATION > 60 Report ing units: RATE (test code = GFR) ml/mi n/1.73 m2 (Modified MDRD Formula)Referen ce Range: > or = 6 0 ml/min/1.73 m2 CREATININE (test code 0.50 MG/DL 0.52-1.04 L = CREAT) CALCIUM (test code = 8.3 MG/DL 8.4-10.2 L CA) PLEASE CALL RESULTS TO PHONE #: [id number] [facility] ARTERIAL BLOOD [id number] 10:51:00 Test Item Value Reference Range Interpretation Comments POC ARTERIAL BLOOD GAS PH 7.446 7.35-7.45 N (test code = POCPHA) POC ARTERIAL BLOOD GAS PCO2 33.4 mmHg 35.0-45.0 L (test code = [id number]) POC ARTERIAL BLOOD GAS PO2 385.4 75.0-100.0 HH (test code = OJMJS2I) POC HCO3 ARTERIAL (test 23.0 MMOL/L 20.0-26.0 N code = [id number]) POC BASE EXCESS (test code -0.5 MMOL/L -3.0-3.0 N = POCBEA) POC O2 SATURATION (test 100.0 % 92.0-98.5 H code = POCO2S) SODIUM (test code = NA/ABG) 142 MMOL/L 135-141 H POTASSIUM (test code = 3.5 MMOL/L 3.7-4.7 L K/ABG) CHLORIDE (test code = 106 MEQ/L CL/ABG) POC IONIZED CALCIUM (test 1.07 MMOL/L 1.13-1.32 L code = POCCA) POC GLUCOSE (test code = 121 MG/DL 60-99 H POCGLU) POC SAMPLE SOURCE (test Arterial Descript Specimen code = POCSAMPLE) LACTIC ACID POC (test code 2.47 mmol/L 0.7-2.0 HH = LACTP) CBC W/AUTO [id number] 10:28:00 Test Item Value Reference Range Interpretation Comments WHITE BLOOD CELL (test code = 10.1 K/MM3 3.8-9.8 H WBC) RED BLOOD CELL (test code = 4.45 M/MM3 3.58-4.97 N RBC) HEMOGLOBIN (test code = HGB) 13.0 G/DL 11.2-14.9 N HEMATOCRIT (test code = HCT) 39.3 % 33.2-43.5 MEAN CELL VOLUME (test code = 88 fL 80.7-99.1 N MCV) MEAN CELL HGB (test code = MCH) 29.2 pg 27.0-34.1 N MEAN CELL HGB CONCETRATION 33.1 % 32.2-35.7 N (test code = MCHC) RED CELL DISTRIBUTION WIDTH 13.5 % 12.1-15.2 N (test code = RDW) PLATELET COUNT (test code = 309 K/MM3 129-368 N PLT) MEAN PLATELET VOLUME (test code 10.0 fl 7.4-10.4 N = MPV) NEUTROPHIL % (test code = NT%) 50.4 % 43-75 N IMMATURE GRANULOCYTE % (test 0.4 % 0.0-2.0 N code = IG%) LYMPHOCYTE % (test code = LY%) 38.0 % 14-44 N MONOCYTE % (test code = MO%) 7.2 % 4-13 N EOSINOPHIL % (test code = EO%) 3.3 % 0-6 N BASOPHIL % (test code = BA%) 0.7 % 0-2 N NUCLEATED RBC % (test code = 0.0 % 0-1.0 N NRBC%) NEUTROPHIL # (test code = NT#) 5.10 K/mm3 2.0-7.6 N IMMATURE GRANULOCYTE # (test 0.04 x10 3/uL 0-0.03 H code = IG#) LYMPHOCYTE # (test code = LY#) 3.84 K/mm3 1.0-3.8 H MONOCYTE # (test code = MO#) 0.73 K/mm3 0.1-0.8 N EOSINOPHIL # (test code = EO#) 0.33 K/mm3 0.0-0.2 H BASOPHIL # (test code = BA#) 0.07 K/mm3 0.0-0.2 N NUCLEATED RBC # (test code = 0.00 K/mm3 0.0-0.1 N NRBC#) PLEASE CALL RESULTS TO PHONE #: [phone] [facility] ARTERIAL BLOOD [id number] 10:01:00 Test Item Value Reference Range Interpretation Comments POC ARTERIAL BLOOD GAS PH 7.383 7.35-7.45 N (test code = POCPHA) POC ARTERIAL BLOOD GAS PCO2 43.1 mmHg 35.0-45.0 N (test code = [id number]) POC ARTERIAL BLOOD GAS PO2 244.0 75.0-100.0 HH (test code = TCHSX7V) POC HCO3 ARTERIAL (test 25.7 MMOL/L 20.0-26.0 N code = [id number]) POC BASE EXCESS (test code 0.3 MMOL/L -3.0-3.0 N = POCBEA) POC O2 SATURATION (test 99.8 % 92.0-98.5 H code = POCO2S) SODIUM (test code = NA/ABG) 144 MMOL/L 135-141 H POTASSIUM (test code = 3.5 MMOL/L 3.7-4.7 L K/ABG) CHLORIDE (test code = 105 MEQ/L CL/ABG) POC IONIZED CALCIUM (test 1.12 MMOL/L 1.13-1.32 L code = POCCA) POC GLUCOSE (test code = 127 MG/DL 60-99 H POCGLU) POC SAMPLE SOURCE (test Arterial Descript Specimen code = POCSAMPLE) LACTIC ACID POC (test code 2.11 mmol/L 0.7-2.0 HH = LACTP) POC ARTERIAL BLOOD [id number] 08:02:00 Test Item Value Reference Range Interpretation Comments POC ARTERIAL BLOOD GAS PH 7.442 7.35-7.45 N (test code = POCPHA) POC ARTERIAL BLOOD GAS PCO2 38.7 mmHg 35.0-45.0 N (test code = [id number]) POC ARTERIAL BLOOD GAS PO2 73.6 75.0-100.0 L (test code = CROXX3W) POC HCO3 ARTERIAL (test 26.4 MMOL/L 20.0-26.0 H code = DEOXSU5I) POC BASE EXCESS (test code 2.2 MMOL/L -3.0-3.0 N = POCBEA) POC O2 SATURATION (test 95.2 % 92.0-98.5 N code = POCO2S) SODIUM (test code = NA/ABG) 144 MMOL/L 135-141 H POTASSIUM (test code = 3.4 MMOL/L 3.7-4.7 L K/ABG) CHLORIDE (test code = 106 MEQ/L CL/ABG) POC IONIZED CALCIUM (test 1.19 MMOL/L 1.13-1.32 N code = POCCA) POC GLUCOSE (test code = 141 MG/DL 60-99 H POCGLU) POC SAMPLE SOURCE (test Arterial Descript Specimen code = POCSAMPLE) LACTIC ACID POC (test code 2.26 mmol/L 0.7-2.0 HH = LACTP) GLUCOSE BEDSIDE [id number] 06:48:00 Test Item Value Reference Range Interpretation Comments GLUCOSE BEDSIDE TESTING (test code 123 MG/DL 60-99 H = GLUBED) HIV 12 AB [id number] 12:57:00 Test Item Value Reference Range Interpretation Comments HIV 1 2 COMBO AG/AB SCREEN AB/AG NON REACTIVE NONREACTIVE (test code = [id number]) PLT RESPONSE TO [id number] 12:28:00 Test Item Value Reference Range Interpretation Comments PLT RESPONSE TO 210 PRU 194-418 N P2Y12 Result s PLAVIX (test code = Interpre tation: Test PLAVRES) results are in P2Y12 Reaction Units (PRU). Pre-Drug Refere nce Range is 194-418. Pre -drug platelet functi on estimates the t otal possible platel et aggregation ind ependent of P2Y12 inhibi tor drugs. Values <194 cou ld be due to low HCT, low platelet count, or prese nce of IIb/IIIa inhibi tors. Post-Drug Resul ts: Lower PRU levels are associated with expected antiplatelet ef fect. Values may be b elow the stated referenc e range. Studies show th at patients with < 230 PRU had fewer adver se events. IS PATIENT ON ANTICOAGULANTS: YLIST ANTICOAGULANTS: AspirinGLYCOSYLATED HEMOGLOBIN [id number] 12:01:00 Test Item Value Reference Range Interpretation Comments GLYCOSYLATED 6.4 % 4.8-5.9 H Any condition t hat HEMOGLOBIN (HA1C) shortens e rythocyte (test code = survival or dec reasesmean GLYHGB) erythrocyte age (e.g., recovery from a cute blood loss,hemolytic anemia) will falsely lo wer HGBA1c resultsregardle ss of the method used. HG BA1c results from [facility] HbSS, HbCC, and HbSc must be interpreted with cautiongiven th e pathological pr ocesses, including anemia,increase d red cell turnover, trans fusion requirements, thatadversely i mpact HGBA1c as a mar ker of long-term glycemiccontrol . Alternative for ms of testing such as fructosaminesho uld be considered for these patients. MEAN BLOOD GLUCOSE 137 MG/DL 70-110 H (test code = MBG) COMPREHENSIVE METABOLIC [id number] 12:00:00 Test Item Value Reference Range Interpretation Comments SODIUM (test code 139 MMOL/L 137-145 N = NA) POTASSIUM (test 3.5 MMOL/L 3.5-5.1 N code = K) CHLORIDE (test 104 MMOL/L 98-107 N code = CL) CARBON DIOXIDE 24 MMOL/L 22-30 N (test code = CO2) ANION GAP (test 15 MMOL/L 14-24 N code = GAP) GLUCOSE (test 108 MG/DL 74-106 H code = GLU) BLOOD UREA 27 MG/DL 7-17 H NITROGEN (test code = BUN) GLOMERULAR > 60 Reporting units : FILTRATION RATE ml/min/1.73 m2 (Modified (test code = GFR) MDRD Formu la)Reference Range: > or = 6 0 ml/min/1.73 m2 CREATININE (test 0.70 MG/DL 0.52-1.04 N code = CREAT) TOTAL PROTEIN 7.9 G/DL 6.3-8.2 N [facility] Clinical Diagnostic (test code = has made us jelly re of PROT) newinformation regarding the potential i nterference ofEltrombopag ( a bone marrow stimulan t used to treatthrombocyt onmenia and aplastic anemia ) with specific assays on the Vitros 5600 of which Total Protein is one of thoseassays per formed in our lab.Interfe rence testing perform ed at Orth[facility] determined that Eltrombopag does interfere with Vitros Total Protein asfollowsEltrom bopag Interference fo r Vitros Product Total Protein:======= Eltrombopag Max Observed Av g. BiasConcentrati on Concentration Concentration== ==== 2.5 mg/dl 6.0 g/dl +0.41 +0.34 3.5 mg/dl 6.0 g /dl +0.50 +0.45 5 mg/dl 6 .0 g/dl +0.73 +0.65 2.5 mg/dl 8.0 g/dl +0.44 +0. 41 3.5 mg/dl 8.0 g/dl +0.55 +0.52 5 mg/dl 8.0 g/dl +0.86 +0.77 ALBUMIN (test 4.4 G/DL 3.5-5.0 N code = ALB) CALCIUM (test 10.0 MG/DL 8.4-10.2 N code = CA) BILIRUBIN TOTAL 0.4 MG/DL 0.2-1.3 N Eltrombopag Interference (test code = for Vitros Prod uct TBil, BILT) BuBc: Assa y Eltrombopag Barbara lyte/ Max Observed Avg. B ias Concentration C oncentration Concentration== ====TBil 7mg/dl TBil/ 1. 2mg/dl +0.23mg.dl +0.2 0mg/dlBuBc 3.5mg/dl Bu/0.8 mg/dl +0.25mg/dl +0.2 4mg/dlBuBc 7 mg/dl Bu/14.2mg /dl +0.38mg/dl +0.2 5mg/dlBuBc 5mg/dl Bc/0mg/ dl +0.25mg/dl +0.1 5mg/dlBuBc 3.5mg/dl Bc/2.8 mg/dl +0.25mg/dl +0.2 3mg/dl SGOT/AST (test 25 UNITS/L 14-36 N code = AST) SGPT/ALT (test 11 UNITS/L 0-34 N code = ALT) ALKALINE 120 UNITS/L 38-126 N PHOSPHATASE (test code = ALKP) PROTHROMBIN [id number] 11:59:00 Test Item Value Reference Range Interpretation Comments PROTHROMBIN TIME 10.9 SECONDS 9.4-12.7 N PATIENT (test code = PTP) INTERNATIONAL NORMAL 1.0 0.86-1.14 N The INR is to be RATIO (test code = used only for INR) monitoring oral anticoagulantth erap y. INDICATION I NR VALUE ---- ---- ---- -------1. Prophylaxis, de ep venous thrombos is, including high risk surgery. 2.0 - 3.0 2. Prophylaxis, deep venous thrombosis, hip surgery, treatm ent for deep venous thrombosis or pulmonary prevention of systemic emboli sm in patients wit h valvular heart disease, atrial fibrillation, tissue heart va lve, or acute myocar dial infarction. 2.0 - 3.0 3. Surgical Garment Fitter al prosthesis hear t valves, recurre nt systemic emboli sm. 3.0 - 4.5 PTT [id number] 11:59:00 Test Item Value Reference Range Interpretation Comments PTT ACTIVATED (test code = APTT) 31.8 SECONDS 26.2-35.4 N CBC W/AUTO [id number] 11:58:00 Test Item Value Reference Range Interpretation Comments WHITE BLOOD CELL (test code = 10.7 K/MM3 3.8-9.8 H WBC) RED BLOOD CELL (test code = 5.16 M/MM3 3.58-4.97 H RBC) HEMOGLOBIN (test code = HGB) 15.0 G/DL 11.2-14.9 H HEMATOCRIT (test code = HCT) 45.5 % 33.2-43.5 H MEAN CELL VOLUME (test code = 88 fL 80.7-99.1 N MCV) MEAN CELL HGB (test code = MCH) 29.1 pg 27.0-34.1 N MEAN CELL HGB CONCETRATION 33.0 % 32.2-35.7 N (test code = MCHC) RED CELL DISTRIBUTION WIDTH 13.7 % 12.1-15.2 N (test code = RDW) PLATELET COUNT (test code = 277 K/MM3 129-368 N PLT) MEAN PLATELET VOLUME (test code 10.3 fl 7.4-10.4 N = MPV) NEUTROPHIL % (test code = NT%) 53.4 % 43-75 N IMMATURE GRANULOCYTE % (test 0.5 % 0.0-2.0 N code = IG%) LYMPHOCYTE % (test code = LY%) 34.5 % 14-44 N MONOCYTE % (test code = MO%) 7.7 % 4-13 N EOSINOPHIL % (test code = EO%) 3.1 % 0-6 N BASOPHIL % (test code = BA%) 0.8 % 0-2 N NUCLEATED RBC % (test code = 0.0 % 0-1.0 N NRBC%) NEUTROPHIL # (test code = NT#) 5.69 K/mm3 2.0-7.6 N IMMATURE GRANULOCYTE # (test 0.05 x10 3/uL 0-0.03 H code = IG#) LYMPHOCYTE # (test code = LY#) 3.67 K/mm3 1.0-3.8 N MONOCYTE # (test code = MO#) 0.82 K/mm3 0.1-0.8 H EOSINOPHIL # (test code = EO#) 0.33 K/mm3 0.0-0.2 H BASOPHIL # (test code = BA#) 0.09 K/mm3 0.0-0.2 N NUCLEATED RBC # (test code = 0.00 K/mm3 0.0-0.1 N NRBC#) - XR CHEST 2 [id number] 11:56:00 [facility] 1950 Sex: F Patient Name: RIGO BRITO Unit No: [id number] EXAMS: CPT CODE: [id number] XR CHEST 2 V 09115 EXAMINATION: - XR CHEST 2 V HISTORY: Preop COMPARISON: No prior examinations are available for comparison. Location code: C3 FINDINGS: PA and lateral views of the chest are submitted for evaluation. The lungs are clear. The cardiac silhouette, mediastinum and pulmonary vasculature are unremarkable. Degenerativechanges are present in the spine IMPRESSION: 1. No acute radiographic abnormality. 2. Degenerative changes in the spine at 1156 Reported andsigned by: Quyen Nguyen MD CC: Cosmo Hernández Technologist: ODELL Guillen, RT(R) Transcrpt Date/Tm/Trnsp: 09/11/2021 (1156) [email or web address] Orig Print D/T: S: 09/11/2021 (1200) [facility] NAME: RIGO BRITO [id number] [address] PHYS: [place] [address] : 1950 AGE:71 SEX: F LOC: [id number].5MU PHONE #: [phone] EXAM DATE: 09/11/2021 STATUS: PRE IN FAX #: [phone] RADIOLOGY NO: PAGE 1 Signed ReportPROTHROMBIN TIME 2021-08-29 11:39:00 Test Item Value Reference Range Interpretation Comments PROTHROMBIN TIME 11.7 SECONDS 9.5-12.7 PATIENT (test code = PTP) INTERNATIONAL NORMAL 1.1 0.86-1.14 N The INR is to be RATIO (test code = used only for INR) monitoring oral anticoagulantth erap y. INDICATION I NR VALUE ---- ---- ---- -------1. Prophylaxis, de ep venous thrombos is, including high risk surgery. 2.0 - 3.0 2. Prophylaxis, deep venous thrombosis, hip surgery, treatm ent for deep venous thrombosis or pulmonary prevention of systemic emboli sm in patients wit h valvular heart disease, atrial fibrillation, tissue heart va lve, or acute myocar dial infarction. 2. 0 - 3.0 3. Surgical Garment Fitter al prosthesis hear t valves, recurre nt systemic emboli sm. 3.0 - 4.5 PTT [id number] 11:39:00 Test Item Value Reference Range Interpretation Comments PTT ACTIVATED (test code = APTT) 34.6 SECONDS 25.1-36.5 N BASIC METABOLIC [id number] 11:05:00 Test Item Value Reference Range Interpretation Comments SODIUM (test code = 141 MMOL/L 137-145 N NA) POTASSIUM (test code = 3.8 MMOL/L 3.5-5.1 N K) CHLORIDE (test code = 103 MMOL/L 98-107 N CL) CARBON DIOXIDE (test 31 MMOL/L 22-30 H code = CO2) GLUCOSE (test code = 110 MG/DL 74-106 H GLU) BLOOD UREA NITROGEN 19 MG/DL 7-17 H (test code = BUN) GLOMERULAR FILTRATION > 60 Report ing units: RATE (test code = GFR) ml/mi n/1.73 m2 (Modified MDRD Formula)Referen ce Range: > or = 6 0 ml/min/1.73 m2 CREATININE (test code 0.70 MG/DL 0.52-1.04 N = CREAT) CALCIUM (test code = 9.3 MG/DL 8.4-10.2 N CA) [id number] 11:05:00 Test Item Value Reference Range Interpretation Comments MAGNESIUM (test code = MAG) 1.9 MG/DL 1.6-2.3 N CBC W/AUTO [id number] 10:34:00 Test Item Value Reference Range Interpretation Comments WHITE BLOOD CELL (test code = 10.1 K/MM3 3.8-9.8 H WBC) RED BLOOD CELL (test code = 4.93 M/MM3 3.58-4.97 N RBC) HEMOGLOBIN (test code = HGB) 14.5 G/DL 11.2-14.9 N HEMATOCRIT (test code = HCT) 43.5 % 33.2-43.5 N MEAN CELL VOLUME (test code = 88 fL 80.7-99.1 N MCV) MEAN CELL HGB (test code = MCH) 29.4 pg 27.0-34.1 N MEAN CELL HGB CONCETRATION 33.3 % 32.2-35.7 N (test code = MCHC) RED CELL DISTRIBUTION WIDTH 13.7 % 12.1-15.2 N (test code = RDW) PLATELET COUNT (test code = 298 K/MM3 129-368 N PLT) MEAN PLATELET VOLUME (test code 9.8 fl 7.4-10.4 N = MPV) NEUTROPHIL % (test code = NT%) 56.0 % 43-75 N IMMATURE GRANULOCYTE % (test 0.3 % 0.0-2.0 N code = IG%) LYMPHOCYTE % (test code = LY%) 31.4 % 14-44 N MONOCYTE % (test code = MO%) 7.4 % 4-13 N EOSINOPHIL % (test code = EO%) 4.0 % 0-6 N BASOPHIL % (test code = BA%) 0.9 % 0-2 N NUCLEATED RBC % (test code = 0.0 % 0-1.0 N NRBC%) NEUTROPHIL # (test code = NT#) 5.64 K/mm3 2.0-7.6 N IMMATURE GRANULOCYTE # (test 0.03 x10 3/uL 0-0.03 N code = IG#) LYMPHOCYTE # (test code = LY#) 3.16 K/mm3 1.0-3.8 N MONOCYTE # (test code = MO#) 0.74 K/mm3 0.1-0.8 N EOSINOPHIL # (test code = EO#) 0.40 K/mm3 0.0-0.2 H BASOPHIL # (test code = BA#) 0.09 K/mm3 0.0-0.2 N NUCLEATED RBC # (test code = 0.00 K/mm3 0.0-0.1 N NRBC#) COVID 19 Asymptomatic IH [id number] 09:55:00 Test Item Value Reference Range Interpretation Comments COVID 19 NEGATIVE Negative "Negative resul ts from Asymptomatic IH AG patients with symptom (test code = onset beyondfiv e days, COVNONPUIAG) should be treat ed as presumptive, andconfirmation with a molecular assay , if necessary forpa tient management may be performed. Nega tive results do notr ule out COVID-19 and sh ould not be used as the sole basisfor treatm ent or patient managem ent decisions, includinginfect ion control decisio ns. Negative result s should beconsidered in the context of a pa tients recent exposure s,history, and the presenc e of clinical signs and symptomsconsist ent with COVID-19.This t est detects both vi able andnon-viable S ARS-CoV and SARS CoV-2. Test performance dep endson the amount of virus (antigen) in the sample." Comments to Phleb: PLS RUN TEST STAT. THANKSBASIC METABOLIC [id number] 08:16:00 Test Item Value Reference Range Interpretation Comments SODIUM (test code = 139 MMOL/L 137-145 N NA) POTASSIUM (test code = 4.0 MMOL/L 3.5-5.1 N K) CHLORIDE (test code = 103 MMOL/L 98-107 N CL) CARBON DIOXIDE (test 29 MMOL/L 22-30 N code = CO2) GLUCOSE (test code = 148 MG/DL 74-106 H GLU) BLOOD UREA NITROGEN 21 MG/DL 7-17 H (test code = BUN) GLOMERULAR FILTRATION > 60 Report ing units: RATE (test code = GFR) ml/mi n/1.73 m2 (Modified MDRD Formula)Referen ce Range: > or = 6 0 ml/min/1.73 m2 CREATININE (test code 0.70 MG/DL 0.52-1.04 N = CREAT) CALCIUM (test code = 9.6 MG/DL 8.4-10.2 N CA) [id number] 08:16:00 Test Item Value Reference Range Interpretation Comments MAGNESIUM (test code = MAG) 1.9 MG/DL 1.6-2.3 N PROTHROMBIN [id number] 07:51:00 Test Item Value Reference Range Interpretation Comments PROTHROMBIN TIME 11.1 SECONDS 9.5-12.7 N PATIENT (test code = PTP) INTERNATIONAL NORMAL 1.0 0.86-1.14 N The INR is to be RATIO (test code = used only for INR) monitoring oral anticoagulantth erap y. INDICATION I NR VALUE ---- ---- ---- -------1. Prophylaxis, de ep venous thrombos is, including high risk surgery. 2.0 - 3.0 2. Prophylaxis, deep venous thrombosis, hip surgery, treatm ent for deep venous thrombosis or pulmonary prevention of systemic emboli sm in patients wit h valvular heart disease, atrial fibrillation, tissue heart va lve, or acute myocar dial infarction. 2. 0 - 3.0 3. Surgical Garment Fitter al prosthesis hear t valves, recurre nt systemic emboli sm. 3.0 - 4.5 PTT [id number] 07:51:00 Test Item Value Reference Range Interpretation Comments PTT ACTIVATED (test code = APTT) 34.1 SECONDS 25.1-36.5 N CBC W/AUTO [id number] 07:40:00 Test Item Value Reference Range Interpretation Comments WHITE BLOOD CELL (test code = 11.1 K/MM3 3.8-9.8 H WBC) RED BLOOD CELL (test code = 5.14 M/MM3 3.58-4.97 H RBC) HEMOGLOBIN (test code = HGB) 14.9 G/DL 11.2-14.9 N HEMATOCRIT (test code = HCT) 45.0 % 33.2-43.5 H MEAN CELL VOLUME (test code = 88 fL 80.7-99.1 N MCV) MEAN CELL HGB (test code = MCH) 29.0 pg 27.0-34.1 N MEAN CELL HGB CONCETRATION 33.1 % 32.2-35.7 N (test code = MCHC) RED CELL DISTRIBUTION WIDTH 13.5 % 12.1-15.2 N (test code = RDW) PLATELET COUNT (test code = 369 K/MM3 129-368 H PLT) MEAN PLATELET VOLUME (test code 9.7 fl 7.4-10.4 N = MPV) NEUTROPHIL % (test code = NT%) 56.6 % 43-75 N IMMATURE GRANULOCYTE % (test 0.6 % 0.0-2.0 N code = IG%) LYMPHOCYTE % (test code = LY%) 30.4 % 14-44 N MONOCYTE % (test code = MO%) 8.1 % 4-13 N EOSINOPHIL % (test code = EO%) 3.4 % 0-6 N BASOPHIL % (test code = BA%) 0.9 % 0-2 N NUCLEATED RBC % (test code = 0.0 % 0-1.0 N NRBC%) NEUTROPHIL # (test code = NT#) 6.30 K/mm3 2.0-7.6 N IMMATURE GRANULOCYTE # (test 0.07 x10 3/uL 0-0.03 H code = IG#) LYMPHOCYTE # (test code = LY#) 3.38 K/mm3 1.0-3.8 N MONOCYTE # (test code = MO#) 0.90 K/mm3 0.1-0.8 H EOSINOPHIL # (test code = EO#) 0.38 K/mm3 0.0-0.2 H BASOPHIL # (test code = BA#) 0.10 K/mm3 0.0-0.2 N NUCLEATED RBC # (test code = 0.00 K/mm3 0.0-0.1 N NRBC#) COVID 19 Asymptomatic IH [id number] 14:21:00 Test Item Value Reference Range Interpretation Comments COVID 19 NEGATIVE Negative "Negative resul ts from Asymptomatic IH AG patients with symptom (test code = onset beyondfiv e days, COVNONPUIAG) should be treat ed as presumptive, andconfirmation with a molecular assay , if necessary forpa tient management may be performed. Nega tive results do notr ule out COVID-19 and sh ould not be used as the sole basisfor treatm ent or patient managem ent decisions, includinginfect ion control decisio ns. Negative result s should beconsidered in the context of a pa tients recent exposure s,history, and the presenc e of clinical signs and symptomsconsist ent with COVID-19.This t est detects both vi able andnon-viable S ARS-CoV and SARS CoV-2. Test performance dep endson the amount of virus (antigen) in the sample."
[2022-07-28 20:46] LABS: SARS-CoV-2 Antigen Rapid Res Negative (Negative)
--- NOTE | 2022-07-28 20:59 | RAD REPORT ---
EXAM DESCRIPTION: [facility]Stone Protocol - 07/28/2022 8:47 pm CLINICAL HISTORY: Kidney stones COMPARISON: CTSTONE PROTOCOL dated 05/30/2013; CT ABD PELVIS W CONTRAST dated 04/28/2012 TECHNIQUE: CT of the abdomen and pelvis was performed. All CT scans are performed using dose optimization technique as appropriate and may include automated exposure control or mA/KV adjustment according to patient size. FINDINGS: Lower chest: Mild circumflex thickened distal esophagus . Aortic valve prosthesis. Liver: Mildly nodular liver contour. Biliary: Cholecystectomy. Stomach: No significant focal abnormality. Duodenum: No significant focal abnormality. Pancreas: No significant abnormality. Spleen: No significant abnormality. Adrenal: No suspicious lesions. Kidney/ureter: Mild left-sided hydronephrosis secondary to a 3 mm stone in the left proximal ureter. Right lower pole renal lesion is likely a cyst. Several left renal calculi noted. Retroperitoneum: No retroperitoneal adenopathy. Vascular: No aneurysm. Atherosclerosis. Bowel: No significant focal abnormality. Peritoneum: No ascites or free air. Small fat containing umbilical hernia. Fat containing ventral her tiffany. Bladder: Grossly unremarkable. Reproductive: No adnexal masses. Bones: No acute fracture. Grade 2 anterolisthesis of L4 on L5. Other: n/a IMPRESSION: Mild left sided hydronephrosis secondary to a 3 mm stone in the left proximal ureter.
[2022-07-28 21:05] LABS: Urine Blood 2+ (Negative); Urine Glucose Negative (Negative); Urine Protein Negative (Negative); Urine Specific Gravity 1.015 (1.005-1.030); Urine pH 5.5 (5.0-7.0)
[2022-07-28 21:11] LABS: Urine Bacteria <20 /HPF (<20); Urine Mucus Slight /HPF (None Seen)
[2022-07-28] MEDS ORDERED: FENTANYL CITR 100 MCG/2 ML ONE (21:22)
[2022-07-28] MEDS ORDERED: TAMSULOSIN 0.4 MG SR CAP ONE (21:23)
[2022-07-28] MEDS ORDERED: CEFTRIAXONE 1000 MG/VIAL ONE (21:23)
[2022-07-28 21:25] LABS: Absolute Lymphocytes (CBC) 0.5 K/uL (0.7-4.9); Hematocrit 43.1 % (36.0-45.0); Lymphocytes % 7.9 % (15.3-44.8); MCV 86.9 fL (80-100); MPV 7.6 fL (7.6-11.3); RBC Red Blood Cell Count 4.96 M/uL (3.86-4.86)
[2022-07-28 21:31] LABS: Protime INR 1.03
[2022-07-28 21:43] LABS: Albumin 3.4 g/dL (3.4-5.0); Bilirubin Total 0.5 mg/dL (0.2-1.0); Potassium 3.1 mmol/L (3.5-5.1); Protein, Total 7.6 g/dL (6.4-8.2)
[2022-07-28] MEDS ORDERED: KCL 20 MEQ/100 mL IVPB 200 ML IV ONE (22:15)
[2022-07-28] MEDS ORDERED: NA CHLORIDE 0.9% 500 ML ONE ×2 (22:15→22:36)
--- NOTE | 2022-07-28 22:22 | RAD REPORT ---
EXAM DESCRIPTION: RAD - Chest Single View - 07/28/2022 10:16 pm CLINICAL HISTORY: fluid vol assessment COMPARISON: ABDOMEN 1 VIEW KUB dated 07/13/2015; ABDOMEN 1 VIEW KUB dated 10/06/2014; ABDOMEN 1 VIEW KU B dated 06/24/2014; ABDOMEN 1 VIEW KUB dated 07/06/2013; Stone Protocol dated 07/28/2022None FINDINGS: Lines: None. Lungs: Mild prominence of the pulmonary interstitium. Pleural: No significant pleural effusions or pneumothorax. Cardiac: The heart size is within normal limits. Mediastinum: Within normal limits. Bones: No acute fractures. Sternotomy. Other: None IMPRESSION: Vascular congestion without margie pulmonary edema. No consolidative airspace disease.
[2022-07-28] MEDS ORDERED: NA CHLORIDE 0.9% 1,000 ML ONE (22:35)
[2022-07-29] MEDS ORDERED: CEFEPIME 1 GM/VIAL ONE
[2022-07-29] MEDS ORDERED: NA CHLORIDE 0.9% 100 ML ONE
[2022-07-29] MEDS ORDERED: NA CHLORIDE 0.9% 250 ML ONE ×2 (00:44→01:07)
[2022-07-29] MEDS ORDERED: VANCOMYCIN 1 GM/VIAL ONE ×2 (00:44→01:07)
--- NOTE | 2022-07-29 01:23 | EDPHYS ---
Physician Documentation [facility] Name: Gabi Shepard Age: 72 yrs Sex: Female : 1950 Arrival Date: 07/28/2022 Time: 20:11 Bed 8 Private MD: Magnus Mckinley ED Physician Yunior Bendeict HPI: 07/28 20:24 This 72 yrs old Female presents to ER via Unassigned with complaints of Possible Kidney snw Stone. 20:24 Onset: The symptoms/episode began/occurred suddenly, 2 hour(s) ago, and became snw persistent. Associated signs and symptoms: Pertinent positives: flank pain (left). The patient has experienced similar episodes in the past, several times, multiple times. It is unknown whether or not the patient has recently seen a physician. getting list of routine medications. No know drug allergies per pt report to me.. Historical: - Allergies: 20:28 No Known Allergies; ll3 - Home Meds: 20:28 aspirin 81 mg Oral tab daily [Active]; cranberry oral [Active]; ll3 losartan-hydrochlorothiazide 100-25 mg oral tab 1 tab once daily [Active]; metformin 500 mg Oral tab 1 tab daily [Active]; amlodipine 5 mg tab 1 tab once daily [Active]; clonidine HCl 0.1 mg oral tab [Active]; Zoloft Oral [Active]; carvedilol 25 mg oral tab 1 tab 2 times per day [Active]; - PMHx: 20:28 Diabetes - NIDDM; Hypertension; MS; ll3 - Immunization history:: Client reports receiving the 2nd dose of the Covid vaccine. - Social history:: Smoking status: . ROS: 20:23 Constitutional: Negative for fever, chills, and weight loss, Eyes: Negative for injury, snw pain, redness, and discharge, ENT: Negative for injury, pain, and discharge, Neck: Negative for injury, pain, and swelling, Cardiovascular: Negative for chest pain, palpitations, and edema, Respiratory: Negative for shortness of breath, cough, wheezing, and pleuritic chest pain, Abdomen/GI: Negative for abdominal pain, nausea, vomiting, diarrhea, and constipation. 20:23 : Negative for injury, bleeding, discharge, and swelling, MS/Extremity: Negative for injury and deformity, Skin: Negative for injury, rash, and discoloration, Neuro: Negative for headache, weakness, numbness, tingling, and seizure, Psych: Negative for depression, anxiety, suicide ideation, homicidal ideation, and hallucinations. 20:23 Back: Positive for flank pain, on the left. Exam: 20:22 Skin: Warm, dry with normal turgor. Normal color with no rashes, no lesions, and no snw evidence of cellulitis. MS/ Extremity: Pulses equal, no cyanosis. Neurovascular intact. Full, normal range of motion. Neuro: Awake and alert, GCS 15, oriented to person, place, time, and situation. Cranial nerves II-XII grossly intact. Motor strength 5/5 in all extremities. Sensory grossly intact. Cerebellar exam normal. Normal gait. Psych: Awake, alert, with orientation to person, place and time. Behavior, mood, and affect are within normal limits. 20:22 Constitutional: This is a well developed, well nourished patient who is awake, alert, but in obvious discomfort. Head/Face: Normocephalic, atraumatic. Eyes: Pupils equal round and reactive to light, extra-ocular motions intact. Lids and lashes normal. Conjunctiva and sclera are non-icteric and not injected. Cornea within normal limits. Periorbital areas with no swelling, redness, or edema. Neck: Trachea midline, no thyromegaly or masses palpated, and no cervical lymphadenopathy. Supple, full range of motion without nuchal rigidity, or vertebral point tenderness. No Meningismus. Chest/axilla: Normal chest wall appearance and motion. +zipper scar. Nontender with no deformity. No lesions are appreciated. Cardiovascular: Regular rate and rhythm with a normal S1 and S2. No gallops, murmurs, or rubs. Normal PMI, no JVD. No pulse deficits. Respiratory: Lungs have equal breath sounds bilaterally, clear to auscultation and percussion. No rales, rhonchi or wheezes noted. No increased work of breathing, no retractions or nasal flaring. Abdomen/GI: Soft, non-tender, with normal bowel sounds. No distension or tympany. No guarding or rebound. No evidence of tenderness throughout. 20:22 Back: CVA tenderness, that is moderate, is noted on the left. Vital Signs: 20:23 BP 171 / 98; Pulse 100; Resp 18; Temp 99.1(O); Pulse Ox 95% on R/A; Weight 83.46 kg ll3 (R); Height 5 ft. 3 in. (160.02 cm) (R); Pain 5/10; 21:07 BP 155 / 76; Pulse 107; Resp 18; Pulse Ox 96% on R/A; lg3 21:40 BP 148 / 74; Pulse 104; Resp 18 S; Pulse Ox 95% on R/A; lg3 21:57 BP 124 / 61; Pulse 107; Resp 19; Pulse Ox 96% on 2 lpm NC; lg3 22:51 BP 116 / 58; Pulse 76; Resp 18 S; Pulse Ox 97% on 2 lpm NC; lg3 07/29 00:48 Temp 99.4; snw 01:10 BP 94 / 63; Pulse 81; Resp 17 S; Temp 98.9(O); Pulse Ox 96% on 2 lpm NC; lg3 01:32 BP 103 / 55; Pulse 89; Resp 17 S; Pulse Ox 95% on 2 lpm NC; lg3 02:21 BP 108 / 62; Pulse 89; Resp 18; Pulse Ox 95% on 2 lpm NC; lg3 07/28 20:23 Body Mass Index 32.59 (83.46 kg, 160.02 cm) ll3 MDM: 07/28 20:14 Patient medically screened. snw 20:25 Differential diagnosis: bacterial infection, UTI, pyelo, hydronephrosis, snw hydroureteralnephrosis with calculus obstruction. 22:16 Data reviewed: vital signs, nurses notes. Management of patient was discussed with the snw following: Hospitalist: Abena Valentin. Counseling: I had a detailed discussion with the patient and/or guardian regarding: the historical points, exam findings, and any diagnostic results supporting the discharge/admit diagnosis, lab results, radiology results, the need for further work-up and treatment in the hospital. Response to treatment: the patient's symptoms have mildly improved after treatment, the patient's symptoms have markedly improved after treatment. ED course: A: UTI, B: tachycardia, temp to 100.9, Lactate >3. A+B+C = severe sepsis without shock. 22:18 ED course: 500ml NS bolus initially given, awaiting Chest x-ray to complete bolus of snw 2490ml (as pt has heart disease). Will give 2nd part of NS bolus as Chest x-ray independently read by me as within normal.. 22:58 Management of patient was discussed with the following: Dr. Mckinley phoned, message snw left. Post IV fluid administration reassessment for Sepsis: Client not prescribed the 30 mL/kg IVF due to: concern for fluid overload. concern for heart failure. Heart: Regular rate/rhythm noted. Other: pain level significantly lowered. 07/29 00:23 ED course: Spoke with urology at [facility], pt to be transferred and pt will snw be hydrated and she will assess. 00:43 ED course: [address] [facility] as we have no Urology on snw call.. 01:42 Management of patient was discussed with the following: Hospitalist: Repeat Lactate snw returned at 3.6, results called to Dr. Tinajero at [facility]. Pt not hypoxic, but is hypoventilating when she falls asleep. Room for more IVF evident as lactate remains elevated and output has been 500ml despite bolus IVF given. Accepting MD would like an additional liter. 500ml bolus started and VS recollection will determine how the remaining 500ml will infuse while awaiting transport. 07/28 20:22 Order name: Blood Culture Adult (2) [facility] 07/28 20:22 Order name: CBC with Diff; Complete Time: 21:27 snw 07/28 20:22 Order name: CMP; Complete Time: 21:49 snw 07/28 20:22 Order name: Lactate w/ 2H reflex if indic.; Complete Time: 21:54 snw 07/28 20:22 Order name: Protime (+inr); Complete Time: 21:31 snw 07/28 20:22 Order name: Ptt, Activated; Complete Time: 21:31 snw 07/28 20:22 Order name: Urine Culture snw 07/28 20:22 Order name: Urine Microscopic Only; Complete Time: 21:11 snw 07/28 20:22 Order name: Stone Protocol CT; Complete Time: 21:09 snw 07/28 20:22 Order name: SARS RAPID; Complete Time: 20:56 snw 07/28 21:05 Order name: Urine Dipstick-Ancillary; Complete Time: 21:09 EDMS 07/28 21:27 Order name: Glucose, Ancillary Testing; Complete Time: 21:27 EDMS 07/28 21:55 Order name: Chest Single View XRAY snw 07/29 01:14 Order name: Lactate Sepsis 2 HR Follow-up; Complete Time: 01:18 EDMS 07/28 20:22 Order name: EKG; Complete Time: 20:23 snw 07/28 20:22 Order name: Accucheck; Complete Time: 21:15 snw 07/28 20:22 Order name: Cardiac monitoring; Complete Time: 21:04 snw 07/28 20:22 Order name: Cath; Complete Time: 21:04 snw 07/28 20:22 Order name: EKG - Nurse/Tech; Complete Time: 21:04 snw 07/28 22:22 Order name: RAD; Complete Time: 22:27 EDMS 07/28 20:22 Order name: IV Saline Lock - Large Bore; Complete Time: 21:56 snw 07/28 20:22 Order name: Labs collected and sent; Complete Time: 21:56 snw 07/28 20:22 Order name: O2 Per Protocol; Complete Time: 21:04 snw 07/28 20:22 Order name: O2 Sat Monitoring; Complete Time: 21:05 snw 07/28 20:22 Order name: Urine Dipstick-Ancillary (obtain specimen); Complete Time: 21:05 snw 07/28 20:22 Order name: Vital Signs; Complete Time: 21:05 snw 07/29 01:33 Order name: Misc. Order: place new liter of 0.9NS to bolus x 1 liter; Complete Time: w 01:58 Administered Medications: 07/28 00:59 Drug: vancoMYCIN 1 grams Route: IVPB; Infused Over: 2 hrs; Site: left antecubital; lg3 07/29 03:04 Follow up: Response: No adverse reaction; IV Status: Completed infusion; IV Intake: lg3 250ml 07/28 21:56 Drug: fentaNYL (PF) 50 mcg Route: IVP; Site: left forearm; lg3 22:14 Follow up: Response: No adverse reaction; Pain is decreased; RASS: Alert and Calm (0) lg3 21:56 Drug: Flomax (tamsulosin) 0.4 mg Route: PO; lg3 21:57 Follow up: Response: No adverse reaction lg3 21:56 Drug: Rocephin (cefTRIAXone) 1 grams Route: IV; Rate: calculated rate; Site: left lg3 forearm; 21:57 Follow up: Response: No adverse reaction; IV Status: Completed infusion; IV Intake: [id number] 22:47 Drug: NS 0.9% 500 ml Route: IV; Rate: bolus; Site: left antecubital; lg3 07/29 00:49 Follow up: IV Status: Completed infusion; IV Intake: 500ml lg3 07/28 22:47 Drug: Potassium Chloride 20 mEq Route: IV; Rate: calculated rate; Site: left lg3 antecubital; 07/29 00:50 Follow up: Response: No adverse reaction; IV Status: Completed infusion; IV Intake: lg3 100ml 07/28 22:47 Drug: Potassium Chloride 20 mEq Route: IV; Rate: calculated rate; Site: left lg3 antecubital; 07/29 00:50 Follow up: Response: No adverse reaction; IV Status: Completed infusion; IV Intake: lg3 100ml 07/28 22:48 Drug: NS 0.9% 1500 ml Route: IV; Rate: 1000 ml; Site: left antecubital; lg3 07/29 00:50 Follow up: Response: No adverse reaction; IV Status: Completed infusion; IV Intake: lg3 1500ml 07/28 23:58 Drug: Cefepime 1 grams Route: IVPB; Rate: 200 ml/hr; Infused Over: 30 mins; Site: left lg3 antecubital; 07/29 00:51 Follow up: Response: No adverse reaction; IV Status: Completed infusion; IV Intake: lg3 100ml 01:31 Drug: NS 0.9% 1000 ml Route: IV; Rate: 100 ml/hr; Site: left antecubital; lg3 03:04 Follow up: Response: No adverse reaction; IV Status: Infusion continued upon transfer lg3 Disposition Summary: 07/29/22 01:22 Transfer Ordered Transfer Location: [facility] snw Reason: Higher level of care snw Condition: Stable snw Problem: new snw Symptoms: have improved snw Accepting Physician: Colby [facility](07/29/22 03:12) lg3 Diagnosis - Severe sepsis without septic shock snw - Hydronephrosis with renal and ureteral calculous obstruction snw - UTI/ Urinary tract infection, site not specified snw Forms: - Medication Reconciliation Form snw - SBAR form snw Signatures: Dispatcher [employer] EDMS Lyssa Mendez, MEDICAL TECHNICAL WRITER-C MEDICAL TECHNICAL WRITER-Csnw Elisabeth Mendez RN RN lg3 Neda Perdomo RN RN ll3 Yunior Benedict MD MD bs3 Corrections: (The following items were deleted from the chart) 07/28 20:24 20:22 Constitutional: This is a well developed, well nourished patient who is awake, snw alert, but in obvious discomfort. Head/Face: Normocephalic, atraumatic. Eyes: Pupils equal round and reactive to light, extra-ocular motions intact. Lids and lashes normal. Conjunctiva and sclera are non-icteric and not injected. Cornea within normal limits. Periorbital areas with no swelling, redness, or edema. Neck: Trachea midline, no thyromegaly or masses palpated, and no cervical lymphadenopathy. Supple, full range of motion without nuchal rigidity, or vertebral point tenderness. No Meningismus. Chest/axilla: Normal chest wall appearance and motion. Nontender with no deformity. No lesions are appreciated. Cardiovascular: Regular rate and rhythm with a normal S1 and S2. No gallops, murmurs, or rubs. Normal PMI, no JVD. No pulse deficits. Respiratory: Lungs have equal breath sounds bilaterally, clear to auscultation and percussion. No rales, rhonchi or wheezes noted. No increased work of breathing, no retractions or nasal flaring. Abdomen/GI: Soft, non-tender, with normal bowel sounds. No distension or tympany. No guarding or rebound. No evidence of tenderness throughout. snw 20:31 20:28 Home Meds: aspirin 81 mg Oral tab 81 mg daily; ll3 ll3 22:29 22:18 ED course: 1 L NS bolus initially given, awaiting Chest x-ray to complete bolus snw of 2490ml (as pt has heart disease). Will use ideal body weight of 70kg, 30ml/kg bolus = 2100, will give 2nd L NS bolus as Chest x-ray independently read by me as within normal.. [facility]29 [facility]
--- NOTE | 2022-07-29 01:23 | ER ---
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 Coronavirus ll3 screen: Vaccine status: Patient reports receiving the 2nd dose of the covid vaccine. At this time, the client does not indicate any symptoms associated with coronavirus-19. Ebola Screen: No symptoms or risks identified at this time. Initial Sepsis Screen: Does the patient meet any 2 criteria? HR > 90 bpm. Yes Does the patient have a suspected source of infection? No. Patient's initial sepsis screen is negative. 20:23 Method Of Arrival: Wheelchair ll3 20:26 Risk Assessment: Do you want to hurt yourself or someone else? Patient reports no ll3 desire to harm self or others. Onset of symptoms was July 28, 2022. 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 20:26 Acuity: GABBIE 3 ll3 Historical: - Allergies: 20:28 No Known Allergies; ll3 - Home Meds: 20:28 aspirin 81 mg Oral tab daily [Active]; cranberry oral [Active]; ll3 losartan-hydrochlorothiazide 100-25 mg oral tab 1 tab once daily [Active]; metformin 500 mg Oral tab 1 tab daily [Active]; amlodipine 5 mg tab 1 tab once daily [Active]; clonidine HCl 0.1 mg oral tab [Active]; Zoloft Oral [Active]; carvedilol 25 mg oral tab 1 tab 2 times per day [Active]; - PMHx: 20:28 Diabetes - NIDDM; Hypertension; MS; ll3 - Immunization history:: Client reports receiving the 2nd dose of the Covid vaccine. - Social history:: Smoking status: . Screenin:07 [facility] ED Fall Risk Assessment (Adult) History of falling in the last 3 months, lg3 including since admission No falls in past 3 months (0 pts). Abuse screen: Denies threats or abuse. Denies injuries from another. Nutritional screening: No deficits noted. Tuberculosis screening: No symptoms or risk factors identified. Assessment: 21:07 General: Appears in no apparent distress. uncomfortable, Behavior is calm, cooperative. lg3 Pain: Complains of pain in left flank Pain currently is 7 out of 10 on a pain scale. Noted to be grimacing, resistant to movement. Neuro: No deficits noted. Meyers Agitation-Sedation Scale (RASS): 0 - Alert and Calm Level of Consciousness is awake, alert, obeys commands, Oriented to person, place, time, situation. Cardiovascular: No deficits noted. Denies chest pain, shortness of breath, Capillary refill < 3 seconds Clubbing of nail beds is absent JVD is absent Patient's skin is warm and dry. Respiratory: No deficits noted. Reports cough that is Airway is patent Trachea midline Respiratory effort is even, unlabored, Respiratory pattern is regular, symmetrical. GI: No deficits noted. Abdomen is round non-distended, Bowel sounds present X 4 quads. Abd is soft and non tender X 4 quads. : Reports cramping, flank(s) pain urgency. EENT: Reports nasal congestion nasal discharge. Derm: No deficits noted. Skin is intact, is healthy with good turgor, Skin is dry, Skin is normal. Musculoskeletal: No deficits noted. Circulation, motion, and sensation intact. Range of motion: intact in all extremities. 21:40 Reassessment: Patient appears in no apparent distress at this time. No changes from lg3 previously documented assessment. Patient and/or family updated on plan of care and expected duration. Pain level reassessed. Patient is alert, oriented x 3, equal unlabored respirations, skin warm/dry/pink. 22:30 General: notified lab of needed repeat lactate . lg3 22:51 Reassessment: Patient appears in no apparent distress at this time. No changes from lg3 previously documented assessment. Patient and/or family updated on plan of care and expected duration. Pain level reassessed. Patient is alert, oriented x 3, equal unlabored respirations, skin warm/dry/pink. Patient states feeling better. Patient states symptoms have improved. 23:54 Reassessment: Patient appears in no apparent distress at this time. No changes from lg3 previously documented assessment. Patient and/or family updated on plan of care and expected duration. Pain level reassessed. Patient is alert, oriented x 3, equal unlabored respirations, skin warm/dry/pink. 07/29 01:10 General: while pt quietly sleeping she became hypotensive. woke pt up and pressures lg3 increased. notified provider and fluid bolus ordered. pt asymptomatic at this time. . 01:45 Reassessment: Patient appears in no apparent distress at this time. Patient and/or lg3 family updated on plan of care and expected duration. Pain level reassessed. Patient is alert, oriented x 3, equal unlabored respirations, skin warm/dry/pink. Pain: Complains of pain in left flank Pain currently is 5 out of 10 on a pain scale. 02:04 General: attempted to call report. nurse not available. will try again. 3 03:00 General: report called to MATA Akins. 3 Vital Signs: 07/28 20:23 BP 171 / 98; Pulse 100; Resp 18; Temp 99.1(O); Pulse Ox 95% on R/A; Weight 83.46 kg ll3 (R); Height 5 ft. 3 in. (160.02 cm) (R); Pain 5/10; 21:07 BP 155 / 76; Pulse 107; Resp 18; Pulse Ox 96% on R/A; lg3 21:40 BP 148 / 74; Pulse 104; Resp 18 S; Pulse Ox 95% on R/A; lg3 21:57 BP 124 / 61; Pulse 107; Resp 19; Pulse Ox 96% on 2 lpm NC; lg3 22:51 BP 116 / 58; Pulse 76; Resp 18 S; Pulse Ox 97% on 2 lpm NC; lg3 07/29 00:48 Temp 99.4; snw 01:10 BP 94 / 63; Pulse 81; Resp 17 S; Temp 98.9(O); Pulse Ox 96% on 2 lpm NC; lg3 01:32 BP 103 / 55; Pulse 89; Resp 17 S; Pulse Ox 95% on 2 lpm NC; lg3 02:21 BP 108 / 62; Pulse 89; Resp 18; Pulse Ox 95% on 2 lpm NC; lg3 07/28 20:23 Body Mass Index 32.59 (83.46 kg, 160.02 cm) 3 ED Course: 07/28 20:11 Patient arrived in ED. mr 20:12 Magnus Mckinley MD is Private Physician. mr 20:14 Lyssa Mendez FNP-C is [facility]. snw 20:14 Yunior Benedict MD is Attending Physician. snw 20:19 Myek Villanueva, RN is Primary Nurse. ke1 20:28 Triage completed. ll3 20:28 Arm band placed on Patient placed in an exam room, on a stretcher, on pulse oximetry. ll3 20:34 SARS RAPID Sent. ke1 20:[address] In Process Unspecified. EDMS 21:07 Patient has correct armband on for positive identification. Placed in gown. Bed in low lg3 position. Call light in reach. Side rails up X 1. Client placed on continuous cardiac and pulse oximetry monitoring. NIBP monitoring applied. library monitor on. Door closed. Noise minimized. Warm blanket given. Family accompanied patient. 21:07 Tate cath inserted, using sterile technique, 16 Fr., by de, balloon inflated, to lg3 gravity drainage, urine specimen collected. 21:07 Missed attempt(s): 22 gauge in left forearm. Bleeding controlled, band aid applied, lg3 catheter tip intact. 21:10 EKG done, by repair technician. reviewed by Lyssa PORTER. as7 21:15 Blood Culture Adult (2) Sent. lg3 21:15 CBC with Diff Sent. lg3 21:16 CMP Sent. lg3 21:16 Lactate w/ 2H reflex if indic. Sent. lg3 21:16 Protime (+inr) Sent. lg3 21:16 Ptt, Activated Sent. lg3 21:16 Urine Culture Sent. lg3 21:20 Inserted saline lock: 20 gauge in left forearm, using aseptic technique. lg3 21:50 Oxygen administration via nasal cannula \T\ 2L/min. lg3 21:53 Notified Nurse Practitioner and/or Physician Drafter Electrical of a critical lab result(s), bb lactate of 3.9 Lyssa Mendez HELMET BINDER notified. 07/29 03:00 No provider procedures requiring assistance completed. lg3 03:04 Patient transferred, IV remains in place. intact, No redness/swelling at site. lg3 Administered Medications: 07/28 00:59 Drug: vancoMYCIN 1 grams Route: IVPB; Infused Over: 2 hrs; Site: left antecubital; 3 07/29 03:04 Follow up: Response: No adverse reaction; IV Status: Completed infusion; IV Intake: lg3 250ml 07/28 21:56 Drug: fentaNYL (PF) 50 mcg Route: IVP; Site: left forearm; 3 22:14 Follow up: Response: No adverse reaction; Pain is decreased; RASS: Alert and Calm (0) 3 21:56 Drug: Flomax (tamsulosin) 0.4 mg Route: PO; lg3 21:57 Follow up: Response: No adverse reaction 3 21:56 Drug: Rocephin (cefTRIAXone) 1 grams Route: IV; Rate: calculated rate; Site: left lg3 forearm; 21:57 Follow up: Response: No adverse reaction; IV Status: Completed infusion; IV Intake: [id number] 22:47 Drug: NS 0.9% 500 ml Route: IV; Rate: bolus; Site: left antecubital; [facility] 07/29 00:49 Follow up: IV Status: Completed infusion; IV Intake: 500ml [facility] 07/28 22:47 Drug: Potassium Chloride 20 mEq Route: IV; Rate: calculated rate; Site: left lg3 antecubital; 07/29 00:50 Follow up: Response: No adverse reaction; IV Status: Completed infusion; IV Intake: lg3 100ml 07/28 22:47 Drug: Potassium Chloride 20 mEq Route: IV; Rate: calculated rate; Site: left lg3 antecubital; 07/29 00:50 Follow up: Response: No adverse reaction; IV Status: Completed infusion; IV Intake: lg3 100ml 07/28 22:48 Drug: NS 0.9% 1500 ml Route: IV; Rate: 1000 ml; Site: left antecubital; 3 07/29 00:50 Follow up: Response: No adverse reaction; IV Status: Completed infusion; IV Intake: lg3 1500ml 07/28 23:58 Drug: Cefepime 1 grams Route: IVPB; Rate: 200 ml/hr; Infused Over: 30 mins; Site: left lg3 antecubital; 07/29 00:51 Follow up: Response: No adverse reaction; IV Status: Completed infusion; IV Intake: lg3 100ml 01:31 Drug: NS 0.9% 1000 ml Route: IV; Rate: 100 ml/hr; Site: left antecubital; lg3 03:04 Follow up: Response: No adverse reaction; IV Status: Infusion continued upon transfer lg3 Medication: 03:04 VIS not applicable for this client. lg3 Intake: 07/28 21:57 IV: 10ml; Total: 10ml. lg3 07/29 00:49 IV: 500ml; Total: 510ml. lg3 00:50 IV: 100ml; Total: 610ml. lg3 00:50 IV: 100ml; Total: 710ml. lg3 00:50 IV: 1500ml; Total: 2210ml. lg3 00:51 IV: 100ml; Total: 2310ml. lg3 03:04 IV: 250ml; Total: 2560ml. lg3 Outcome: 01:22 ER care complete, transfer ordered by . snw 03:04 Transferred by ground EMS to [facility], Transfer form completed. lg3 03:04 Condition: stable 03:12 Patient left the ED. lg3 Signatures: Dispatcher [employer] EDMS Lyssa Mendez, PILOT BOAT DECKHAND-C PILOT BOAT DECKHAND-Csntherese DuncanMarcie mr PostIsabel, RN RN Elisabeth Coello RN RN lg3 Neda Perdomo RN RN eliza3 Myke Villanueva RN RN ke1 Melissa Patton as7 Corrections: (The following items were deleted from the chart) 07/28 20:28 20:23 Initial Sepsis Screen: Does the patient meet any 2 criteria? HR > 90 bpm. Does ll3 the patient have a suspected source of infection? No. Patient's initial sepsis screen is negative. ll3 20:31 20:28 Home Meds: aspirin 81 mg Oral tab 81 mg daily; ll3 ll3 07/29 01:47 07/28 21:07 Pain: Complains of pain in right flank Pain currently is 7 out of 10 on a lg3 pain scale. Noted to be grimacing, resistant to movement, lg3
[2022-07-29] MEDS ORDERED: NA CHLORIDE 0.9% 1,000 ML ONE (01:25)
[2022-07-29 03:26] VITALS: TEMP 98.9
[2022-07-29 03:27] VITALS: O2SAT 95
[2022-07-29 03:29] VITALS: BP 108/62
--- NOTE | 2022-07-30 18:43 | EKG ---
Test Date: 2022-07-28 Test Time: 21:05:28 [place]: STEPHANIE MEASUREMENT RESULTS: Intervals: Rate: 105 AK: 164 QRSD: 76 QT: 350 QTc: 462 [place]: P: -1 AK: 164 QRS: 56 T: 238 INTERPRETIVE STATEMENTS: Sinus tachycardia with occasional premature ventricular complexes ST & T wave abnormality, consider inferolateral ischemia Abnormal ECG Compared to ECG 09/01/2014 09:58:24 Ventricular premature complex(es) now present ST (T wave) deviation now present Possible ischemia now present Sinus rhythm no longer present Left ventricular hypertrophy no longer present Electronically Signed On 07-30-22 18:40:23 [employer] by Román Wilhelm
== END 2022-07-29 03:12 | disposition short-term general hospital (02) ==
LOC: ER 20:09
DX: A41.9 Sepsis, unspecified organism (principal); N13.2 Hydronephrosis with renal and ureteral calculous obstruction; R65.20 Severe sepsis without septic shock; N39.0 Urinary tract infection, site not specified; E11.9 Type 2 diabetes mellitus without complications; I10 Essential (primary) hypertension; Z20.822 Contact with and (suspected) exposure to COVID-19; Z79.82 Long term (current) use of aspirin
CPT/HCPCS: 96365; 96367; 93005; 87040 ×2; 87088; 85025; 87086; 36415; 85610; 82947; 83605 ×2; 85730; 80053; 76377; 74176; 71045; 51702; 96375; 99285; 96366; 87811; J3480; J3010; J3370 ×2; J7050 ×2; J7040 ×2; J7030 ×2; 81003; 81015; 87077; 87186